=== PATIENT | male | born 1970 | race Caucasian/White ===

== ENCOUNTER 2017-03-26 10:42 | Inpatient (IN) | payer OTHER ==
[2017-03-26 11:46] LABS: Bilirubin Negative (Negative); Blood, Urine Negative (Negative); Glucose, Urine (Dipstick) Negative (Negative); Ketone, Urine Negative (Negative); Nitrite Negative (Negative); Protein, Urine (Dipstick) Negative (Neg-Trace)
--- NOTE | 2017-03-26 11:59 | RAD ---
TWO VIEWS CHEST: HISTORY: Fever. TECHNIQUE: PA and lateral views of the chest are obtained. FINDINGS: The lungs are well aerated. No evidence of active intrathoracic disease is seen. No evidence of ef fusions, pneumonia, or pneumothorax is seen. IMPRESSION: Normal two views chest. POS: [facility]
--- NOTE | 2017-03-26 12:00 | RAD ---
FOUR VIEWS RIGHT KNEE: HISTORY: Total right knee replacement with fever. TECHNIQUE: AP, lateral, and both oblique views of the right knee are obtained. FINDINGS: Images demonstrate a right knee arthroplasty. Femoral and tibial components are in good position. The patient has had previous ACL repair. IMPRESSION: Status post right knee arthroplasty. POS: [facility]
[2017-03-26 12:07] LABS: Lactic Acid - Sepsis 1.2 mmol/L (0.5-2.2)
[2017-03-26 12:11] LABS: ALT (SGPT) 25 U/L (8-55); AST (SGOT) 22 U/L (5-34); Alkaline Phosphatase 87 U/L (40-150); Anion Gap 14 mmol/L (10-20); BUN (Urea Nitrogen) 11 mg/dL (8.9-20.6); Bilirubin, Total 0.7 mg/dL (0.2-1.2); Calc. Creatinine Clearance 0 mL/min (70-130); Carbon Dioxide 24 mmol/L (22-29); Chloride 102 mmol/L (98-107); Estimated GFR-MDRD 81; Globulin 3.4 g/dL (2.4-3.5); Protein, Total 7.2 g/dL (6.0-8.3)
[2017-03-26 12:12] LABS: Troponin I Less than 0.010 ng/mL (< 0.028)
[2017-03-26 12:36] LABS: #Eosinphils 0.2 thou/uL (0.0-0.7); #Lymphocytes 1.2 thou/uL (1.20-3.40); #Monocytes 0.4 thou/uL (0.11-0.59); #Neutrophils 5.4 thou/uL (1.40-6.50); %Basophils 0.3 % (0.0-1.0); %Eosinophils 2.2 % (0.0-10.0); %Lymphocytes 17.2 % (21.0-51.0); %Monocytes 5.1 % (0.0-10.0); Hematocrit 29.9 % (42.0-52.0); Mean Platelet Volume 8.1 fL (7.4-10.4); Red Blood Cell (RBC) Count 3.11 mill/uL (4.70-6.10); White Blood Cell (WBC) Count 7.1 thou/uL (4.8-10.8)
[2017-03-26] MEDS ORDERED: HYDROcodone/Acetaminophen 10/325 mg Tablet ONE (13:57)
--- NOTE | 2017-03-26 14:14 | CT ---
CONTRAST ENHANCED CTA CHEST: Date: 03/26/17 HISTORY: 46-year-old male presents with history of fever. Recent knee replacement. Shortness of breath. TECHNIQUE: Contrast enhanced CTA of chest performed. 2D and 3D reconstructed images performed on an independent 3D workstation. FINDINGS: Images demonstrate no evidence of lung parenchymal lesions. No evidence of pneumonia seen. No eviden ce of mediastinal, hilar, or axillary lymphadenopathy seen. The thoracic aorta is unremarkable. Multiple small third order pulmonary arterial filling defects seen in both upper lobes, right middle lobe, and both lower lobes. This is compatible with numerous small, but bilateral and multilobar pu lmonary emboli. IMPRESSION: Multiple, predominantly third order, multilobar pulmonary emboli. Findings discussed with Dr. Rivera at 1359 hours on 03/26/17. CODE CR. POS: [facility]
[2017-03-26] MEDS ORDERED: ISOVUE-370 76%-LOCM 1 ML ONE (14:40)
[2017-03-26] MEDS ORDERED: Heparin 25,000 units/D5W 500 ML IV SCH (14:45)
--- NOTE | 2017-03-26 14:47 | ULT ---
RIGHT LOWER EXTREMITY VENOUS ULTRASOUND WITH DOPPLER: Date: 03/26/17 HISTORY: Shortness of breath. Patient has documented pulmonary artery emboli. COMPARISON: None. TECHNIQUE: Jarvis scale, color flow, Doppler imaging with spectral waveform analysis performed of the right lower extremity venous system. FINDINGS: There is soft tissue swelling. There is compressibility, presence of flow, and augmentation in the common femoral vein, femoral vei n, and popliteal vein. There is flow in the greater saphenous vein, profunda vein, and posterior tib ial vein. IMPRESSION: 1. No evidence of thrombus in the right lower extremity venous system. 2. Soft tissue swelling. POS: [facility]
[2017-03-26] MEDS ORDERED: Heparin 25,000 units/D5W 500 ML ONE (14:58)
[2017-03-26 15:34] LABS: Prothrombin Time 16.5 SEC (12.0-14.7)
[2017-03-26 15:35] LABS: PTT 52.9 SEC (22.9-36.1)
--- NOTE | 2017-03-26 15:53 | HP ---
PRIMARY CARE PHYSICIAN: Figueroa Orantes M.D. REASON FOR ADMISSION: Bilateral pulmonary embolism. HISTORY OF PRESENT ILLNESS: A 46-year-old male who has history of knee arthritis who was recently a dmitted at [facility] on Wednesday for right total knee replacement which was done on that day a nd subsequently patient stayed in hospital till . He was released yesterday afternoon. Per patient, he was given DVT prophylaxis treatment. After going home last night, he had one episode o f fever of 102 and that was subsided with Tylenol. Subsequently, patient woke up this morning and w hen he was walking, he was getting out of breath. Even after walking few steps, he was requiring de ep breath to catch his breath. His is a nurse who checked his vitals and she noted that his ox ygen saturation was 85%-90% and when she was recording his vitals, she also noticed that one time hi s pulse was 145 and it was remaining in 110 and 120s and that was getting worse with exertion. Hiwot ent denies any dizziness. He denies any syncope. He denies any chest pain. He denies any nausea, vomiting, diaphoresis. He denies any lower extremity swelling. He denies any calf tenderness. Rina aviles was discharged home on Xarelto. The patient also reports that he does not have any bowel movem ent since he was hospitalized at [facility]. He was given offer of a stool softener at [facility], but patient was not taking those there and he still does not have any bowel movement. He never had any DVT or PE in the past. REVIEW OF SYSTEMS: The following complete review of systems was negative, unless otherwise mentione d in the HPI or below: Constitutional: Weight loss or gain, ability to conduct usual activities. Skin: Rash, itching. Eyes: Double vision, pain. ENT/Mouth: Nose bleeding, neck stiffness, pain, tenderness. Cardiovascular: Palpitations, dyspnea on exertion, orthopnea. Respiratory: Shortness of breath, wheezing, cough, hemoptysis, fever or night sweats. Gastrointestinal: Poor appetite, abdominal pain, heartburn, nausea, vomiting, constipation, or diar paul. Genitourinary: Urgency, frequency, dysuria, nocturia. Musculoskeletal: Pain, swelling. Neurologic/Psychiatric: Anxiety, depression. Allergy/Immunologic: Skin rash, bleeding tendency. Please see my HPI for pertinent positive and negative. All other review of systems reviewed and neg ative except as mentioned in the HPI. PAST MEDICAL HISTORY: Obesity. PAST SURGICAL HISTORY: Right knee replacement on Wednesday03/23/2017. The patient also reports that he had multiple right knee surgeries as well as left knee meniscal repair, ventral hernia repair by Dr. Aleman. PAST PSYCHIATRIC HISTORY: Reviewed and negative. SOCIAL HISTORY: Patient is and lives at home with the family. No history of tobacco, alcoh ol or illicit drug abuse. FAMILY HISTORY: Father from cancer and he had blood clot. No strong family history of coronar y artery disease, stroke or cancer. No strong family history of blood clot disorder. EMERGENCY ROOM COURSE: Patient is getting heparin drip. ALLERGIES: No known drug allergies. CURRENT HOME MEDICATIONS: Xarelto 10 mg p.o. daily, tramadol 50 mg q.6 hourly p.r.n., and [place] 10 one tablet q.4 hourly p.r.n. for pain. PHYSICAL EXAMINATION: VITAL SIGNS: On arrival, blood pressure 151/79, pulse 108, respiratory rate 20, temperature 98.5, s aturation 95% on room air, and weight 115.6 kilograms. GENERAL: Patient is currently alert, awake, no obvious acute distress. HEAD: Normocephalic, atraumatic. EYES: Pupils round, reactive to light. Extraocular muscles intact. ENT: Oropharynx within normal limits. Moist mucous membranes. No oral lesions. No pharyngeal krys thema, no exudate. NECK: Supple. Range of motion is normal. No meningeal signs of irritation. LUNGS: Clear to auscultation without any rhonchi or rales. CARDIAC: S1 and S2 regular, tachycardia, no murmur, no gallop, no rub. ABDOMEN: Obesity present. Bowel sounds present. Nontender and nondistended. No organomegaly, no mass, no suprapubic tenderness. BACK: Examination unremarkable. No CVA tenderness. EXTREMITIES: Upper extremity passive movements of all joints are normal. Lower extremity, right kn ee surgical site is clean and healthy. Mild edema noted around surgical site without any fluctuance or discharge. No calf tenderness. Distal pulsation intact. SKIN: No skin rash. HEMATOLOGICAL SYSTEM: No lymphadenopathy. PSYCHIATRIC: Normal affect. NEUROLOGIC: Nonfocal examination. IMAGING AND SIGNIFICANT LABORATORY DATA: 1. Ultrasound right lower extremity negative for deep vein thrombosis only showing soft tissue swel ling. CT angiography which was done for high D-dimer, which showed multiple third order multilobar pulmonary emboli. X-ray knee showed status post right total knee arthroplasty. Chest x-ray based o n my review, no acute cardiopulmonary process. 2. CBC: WBC 7.1, hemoglobin 9.9, MCV 96.1, and platelet 229. D-dimer 3.04. 3. BMP: Sodium 136, potassium 4.2, chloride 102, carbon dioxide 24, BUN 11, creatinine 1.0, glucos e 99, calcium 9.0, lactic acid 1.2. 4. LFT: AST 22, ALT 25, alkaline phosphatase 87, albumin 3.8. CK-MB 0.9, troponin I less than 0.0 10. Urinalysis normal. ASSESSMENT AND PLAN/IMPRESSION: 1. Bilateral pulmonary embolism. This patient had recently knee replacement done on Wednesday. Desp ite patient was given thrombosis prophylaxis after surgery, patient developed pulmonary embolism. R ight lower extremity is negative for any deep venous thrombosis. We will also obtain ultrasound on left lower extremity to rule out any deep venous thrombosis there. The patient will be treated with heparin drip. We will monitor PTT and titrate heparin drip as per protocol treatment. This is not Xarelto failure, but this patient will need therapeutic dose of Xarelto on discharge. Patient will need at least 6 months of therapy given correlation with knee surgery and pulmonary embolism. We w ill also send hypercoagulable profile tomorrow morning. We will monitor on telemetry floor. 2. Morbid obesity. Dietary education given. Weight loss education given. Healthy lifestyle measu res discussed with the patient. 3. Recent status post right total knee replacement. While in hospital, we will continue PT, OT. W e will notify Dr. Narvaez while in hospital. 4. Macrocytic anemia. We will continue ferrous sulfate 325 mg p.o. daily, folic acid 1 mg p.o. zachary ly. 5. Deep venous thrombosis prophylaxis. Patient is already on full dose of therapeutic heparin drip . 6. Gastrointestinal prophylaxis, Protonix 40 mg p.o. daily. CODE STATUS: The patient is FULL CODE. The patient's is surrogate decision maker. Disposition plan based on clinical course. We are expecting patient's stay in hospital more than 2 midnights. Plan of care discussed with the patient and at bedside in the emergency room in critical access hospital.
[2017-03-26] MEDS ORDERED: Zolpidem Tartrate 5 MG TAB PO PRN (16:55)
[2017-03-26] MEDS ORDERED: Senokot 8.6 MG TAB PO PRN (16:55)
[2017-03-26] MEDS ORDERED: Ondansetron ODT 4 MG TAB SL PRN (16:55)
[2017-03-26] MEDS ORDERED: HYDROcodone/Acetaminophen 5/325 mg Tablet PO PRN ×2 (16:55)
[2017-03-26] MEDS ORDERED: Ondansetron HCl/PF 4 MG/2 ML Vial IVP PRN ×2 (16:55)
[2017-03-26] MEDS ORDERED: Loperamide HCl 2 MG CAP PO PRN (16:55)
[2017-03-26] MEDS ORDERED: Fleet Enema 133 ML BOT PR PRN (16:55)
[2017-03-26] MEDS ORDERED: Bisacodyl 10 MG SUPP PR PRN (16:55)
[2017-03-26] MEDS ORDERED: Mag-Al 1200 mg/1200 mg/30 ML UDCUP PO PRN (16:55)
[2017-03-26] MEDS ORDERED: Acetaminophen 325 MG TAB PO PRN ×2 (16:55)
[2017-03-26] MEDS ORDERED: Ondansetron ODT 4 MG TAB PO PRN (16:55)
[2017-03-26] MEDS ORDERED: Heparin 10,000 UNITS/ 10 ML VIAL SLOW IVP SCH (16:55)
[2017-03-26] MEDS ORDERED: Heparin 25,000 units/D5W 500 ML IVPB SCH ×3 (16:55→22:15)
[2017-03-26 17:11] VITALS: BMI 37.4
--- NOTE | 2017-03-26 18:46 | ULT ---
LEFT LOWER EXTREMITY VENOUS DUPLEX ULTRASOUND INCLUDING COLOR AND SPECTRAL DOPPLER IMAGIN03/26/17 HISTORY: 46-year-old male with known pulmonary embolus. Exam performed from groin to ankle including visualized greater saphenous, common femoral, superfici al femoral, profunda femoral, popliteal, trifurcation, and posterior tibial vein regions. Phasic randell w with normal compressibility and normal augmentation at all levels. No intraluminal thrombus. IMPRESSION: No evidence for deep venous thrombosis. POS: [facility]
[2017-03-26] MEDS: Docusate 100 MG CAP PO SCH (20:59)
[2017-03-26] MEDS ORDERED: FLU VACC QS2017-18 36 mo. & older 0.5 ML SYRINGE IM ONE (21:00)
[2017-03-27] MEDS: HYDROcodone/Acetaminophen 10/325 mg Tablet PO PRN ×4 (03:20→21:55)
[2017-03-27 05:59] LABS: Hematocrit 27.8 % (42.0-52.0)
--- NOTE | 2017-03-27 07:02 | PDOC.PN ---
- Subjective Encounter Start Date: 03/27/17 Encounter Start Time: 09:26 -: old records requested/rev pt is doing well, no tachycardia, no chest pain, on room air, denies dizziness or dyspnea - Objective Resuscitation Status: Resuscitation Status FULL:Full Resuscitation MAR Reviewed: Yes Vital Signs & Weight: Vital Signs (12 hours) Temp Pulse Resp BP Pulse Ox 03/27/17 03:11 98.9 F 99 18 120/74 95 03/26/17 20:00 99.6 F 103 H 16 118/69 98 03/26/17 19:48 99 03/26/17 19:20 99.6 F 103 H 16 93 L Weight Weight 263 lb 14.4 oz I&O: 03/26/17 03/27/17 03/28/17 06:59 06:59 06:59 Intake Total 2301 Output Total 1025 Balance 1276 Result Diagrams: 03/27/17 05:48 03/27/17 05:48 Radiology Reviewed by me: Yes (US negative for DVT) EKG Reviewed by me: Yes (NSR) Phys Exam - Physical Examination Constitutional: NAD HEENT: PERRLA, moist MMs, sclera anicteric Neck: no JVD, supple Respiratory: no wheezing, no rales, no rhonchi Cardiovascular: RRR, no significant murmur, no rub Gastrointestinal: soft, non-tender, no distention, positive bowel sounds Musculoskeletal: no edema, pulses present Neurological: non-focal, normal sensation, moves all 4 limbs Lymphatic: no nodes Psychiatric: normal affect, A&O x 3 Skin: no rash, normal turgor Dx/Plan (1) Pulmonary embolism Code(s): I26.99 - OTHER PULMONARY EMBOLISM WITHOUT ACUTE COR PULMONALE Status : Acute Qualifiers: Chronicity: acute (2) Status post total right knee replacement Code(s): Z96.651 - PRESENCE OF RIGHT ARTIFICIAL KNEE JOINT Status: Acute (3) Anemia Code(s): D64.9 - ANEMIA, UNSPECIFIED Status: Chronic (4) Obesity (BMI 30-39.9) Code(s): E66.9 - OBESITY, UNSPECIFIED Status: Chronic - Plan cont current plan of care, plan discussed w/ family * continue current heparin drip today, will not start another bag again * will start therapeutic dose of xarelto * overall medically stable and improving * medication reviewed as below * symptomatic treatment * continue PT/OT from tomorrow Review of Systems - Review of Systems Constitutional: negative: Fever, Chills, Sweats, Weakness, Malaise, Other Eyes: negative: Pain, Vision Change, Conjunctivae Inflammation, Eyelid Inflammation, Redness, Other ENT: negative: Ear Pain, Ear Discharge, Nose Pain, Nose Discharge, Nose Congestion, Mouth Pain, Mouth Swelling, Throat Pain, Throat Swelling, Other Respiratory: negative: Cough, Dry, Shortness of Breath, Hemoptysis, SOB with Excertion, Pleuritic Pain, Sputum, Wheezing Cardiovascular: negative: Chest Pain, Palpitations, Orthopnea, Paroxysmal Noc. Dyspnea, Edema, Light Headedness, Other Gastrointestinal: negative: Nausea, Vomiting, Abdominal Pain, Diarrhea, Constipation, Melena, Hematochezia, Other Genitourinary: negative: Dysuria, Frequency, Incontinence, Hematuria, Retention , Other Musculoskeletal: negative: Neck Pain, Shoulder Pain, Arm Pain, Back Pain, Hand Pain, Leg Pain, Foot Pain, Other Skin: negative: Rash, Lesions, Tavo, Bruising, Other - Medications/Allergies Allergies/Adverse Reactions: Allergies Allergy/AdvReac Type Severity Reaction Status Date / Time No Known Allergies Allergy Verified 08/14/16 08:49 Medications: Current Medications Acetaminophen (Tylenol) 650 mg PO Q4H PRN PRN Reason: Headache/Fever or Pain Hydrocodone Bitart/Acetaminophen ([place] 10/325) 1 tab PO Q4H PRN PRN Reason: Moderate Pain (4-6) Last Admin: 03/27/17 03:20 Dose: 1 tab Al Hydroxide/Mg Hydroxide (Maalox) 30 ml PO Q6H PRN PRN Reason: Heartburn or Indigestion Bisacodyl (Dulcolax) 10 mg AK Q24H PRN PRN Reason: Constipation Docusate Sodium (Colace) 100 mg PO BID [facility] Last Admin: 03/26/17 20:59 Dose: 100 mg Ferrous Gluconate (Fergon) 324 mg PO QA[facility] Folic Acid (Folvite) 1 mg PO DAILY [facility] Heparin Sodium (Porcine) (Heparin 1,000 Units/Ml (10 Ml)) 0 units SLOW IVP ASDIR ANIKA PRN Reason: Protocol Heparin Sodium/Dextrose (Heparin 25,000 Units/D5w 500 Ml) 500 mls @ 0 mls/hr IVPB INF ANIKA; Per Protocol PRN Reason: Protocol Last Admin: 03/27/17 03:57 Dose: 500 mls Loperamide HCl (Imodium) 2 mg PO PRN PRN PRN Reason: Diarrhea/Loose Stools Magnesium Hydroxide (Milk Of Magnesium) 30 ml PO DAILYPRN PRN PRN Reason: Constipation Ondansetron HCl (Zofran Odt) 4 mg PO Q6H PRN PRN Reason: Nausea/Vomiting Ondansetron HCl (Zofran) 4 mg IVP Q6H PRN PRN Reason: Nausea/Vomiting Pantoprazole Sodium (Protonix) 40 mg PO DAILY ANIKA Senna (Senokot) 2 tab PO HSPRN PRN PRN Reason: Constipation Sodium Biphosphate/Sodium Phosphate (Fleet Enema) 133 ml AK ONE PRN PRN Reason: Constipation Stop: 03/29/17 16:56 Zolpidem Tartrate (Ambien) 5 mg PO HSPRN PRN PRN Reason: Insomnia
[2017-03-27] MEDS: traMADol HCl 50 MG TAB PO PRN ×2 (08:46→15:20)
[2017-03-27] MEDS: Ferrous Gluconate 324 MG TAB PO SCH (08:49)
[2017-03-27] MEDS: Docusate 100 MG CAP PO SCH ×2 (08:49→22:24)
[2017-03-27] MEDS: Folic Acid 1 MG TAB PO SCH (08:49)
[2017-03-27] MEDS: Milk Of Magnesia 30 ML UDCUP PO PRN (10:15)
--- NOTE | 2017-03-27 17:22 | CON ---
DATE OF CONSULTATION: 03/27/2017 HISTORY OF PRESENT ILLNESS: Mr. Srinivasan is a 46-year-old male. He had right knee surgery recent ly. He was placed on prophylactic dose Eliquis from what I can tell and then started having episode s of shortness of breath with hypoxemia and tachycardia at home. Subsequently, he presented to the emergency department and was diagnosed with thromboembolic disease. He has no previous similar history. He has multiple knee surgeries in the past as well as herniorrhaphy. He is otherwise healthy. SOCIAL HISTORY: He is a nonsmoker, nondrinker. FAMILY HISTORY: He has a family history of cancer and blood clots. REVIEW OF SYSTEMS: Otherwise negative. ALLERGIES: He has no reported allergies. HOME MEDICATION LIST: He is on 10 mg a day of Xarelto, but he could not tell me the dose. He is on [place] and tramadol for pain. PHYSICAL EXAMINATION: VITAL SIGNS: He is afebrile, heart rate is 98, respiratory rate 16, oximetry is 96, blood pressure is 121/60. HEAD AND NECK: Unremarkable. LUNGS: Clear. HEART: Regular rhythm. S1 and S2 are normal. ABDOMEN: Soft and nontender. EXTREMITIES: Without clubbing, cyanosis. His right lower extremity is larger than his left. IMAGING: His Doppler of his right lower extremity was negative. CT angiogram showed bilateral embo lic defects. IMPRESSION: Thromboembolic disease related to knee replacement. PLAN: Lovenox instead of IV heparin. We will be happy to follow with the other physicians caring f or him. They do investigate the dosing of his Xarelto at home.
[2017-03-27] MEDS: Enoxaparin Sodium 100 MG/ML SYRINGE SC SCH (22:04)
[2017-03-28] MEDS: traMADol HCl 50 MG TAB PO PRN ×3 (09:02→21:31)
[2017-03-28] MEDS: Docusate 100 MG CAP PO SCH ×2 (09:03→21:33)
[2017-03-28] MEDS: Folic Acid 1 MG TAB PO SCH (09:04)
[2017-03-28] MEDS: Ferrous Gluconate 324 MG TAB PO SCH (09:04)
[2017-03-28] MEDS: Enoxaparin Sodium 100 MG/ML SYRINGE SC SCH ×2 (09:04→21:30)
[2017-03-28] MEDS: HYDROcodone/Acetaminophen 10/325 mg Tablet PO PRN ×2 (10:50→23:03)
--- NOTE | 2017-03-28 11:35 | PDOC.PN ---
- Subjective Encounter Start Date: 03/28/17 Encounter Start Time: 10:30 Patient seen and examined. No new complaints. No overnight events - Objective Resuscitation Status: Resuscitation Status FULL:Full Resuscitation MAR Reviewed: Yes Vital Signs & Weight: Vital Signs (12 hours) Temp Pulse Resp BP Pulse Ox 03/28/17 11:01 98.9 F 99 17 130/75 97 03/28/17 08:55 98.9 F 101 H 18 122/68 95 03/28/17 04:00 98.0 F 89 18 117/73 98 Weight Weight 261 lb I&O: 03/27/17 03/28/17 03/29/17 06:59 06:59 06:59 Intake Total 2301 1390 Output Total 1025 200 Balance 1276 1190 Result Diagrams: 03/27/17 05:48 03/27/17 05:48 EKG Reviewed by me: Yes (nsr) Phys Exam - Physical Examination Constitutional: NAD HEENT: PERRLA, moist MMs, sclera anicteric Neck: no JVD, supple Respiratory: no wheezing, no rales, no rhonchi Cardiovascular: RRR, no significant murmur, no rub Gastrointestinal: soft, non-tender, no distention, positive bowel sounds Musculoskeletal: no edema, pulses present Neurological: non-focal, normal sensation, moves all 4 limbs Psychiatric: normal affect, A&O x 3 Skin: no rash, normal turgor Dx/Plan (1) Pulmonary embolism Code(s): I26.99 - OTHER PULMONARY EMBOLISM WITHOUT ACUTE COR PULMONALE Status : Acute Qualifiers: Chronicity: acute (2) Status post total right knee replacement Code(s): Z96.651 - PRESENCE OF RIGHT ARTIFICIAL KNEE JOINT Status: Acute (3) Anemia Code(s): D64.9 - ANEMIA, UNSPECIFIED Status: Chronic (4) Obesity (BMI 30-39.9) Code(s): E66.9 - OBESITY, UNSPECIFIED Status: Chronic - Plan cont current plan of care * continue lovenox * discussed with pt about options of warfarin/xarelto/elliquis on discharge * risk benefit of all option discussed * medication reviewed as below * symptomatic treatment. Review of Systems - Review of Systems ENT: negative: Ear Pain, Ear Discharge, Nose Pain, Nose Discharge, Nose Congestion, Mouth Pain, Mouth Swelling, Throat Pain, Throat Swelling, Other Respiratory: negative: Cough, Dry, Shortness of Breath, Hemoptysis, SOB with Excertion, Pleuritic Pain, Sputum, Wheezing Cardiovascular: negative: Chest Pain, Palpitations, Orthopnea, Paroxysmal Noc. Dyspnea, Edema, Light Headedness, Other Gastrointestinal: negative: Nausea, Vomiting, Abdominal Pain, Diarrhea, Constipation, Melena, Hematochezia, Other Genitourinary: negative: Dysuria, Frequency, Incontinence, Hematuria, Retention , Other Musculoskeletal: negative: Neck Pain, Shoulder Pain, Arm Pain, Back Pain, Hand Pain, Leg Pain, Foot Pain, Other Skin: negative: Rash, Lesions, Tavo, Bruising, Other - Medications/Allergies Allergies/Adverse Reactions: Allergies Allergy/AdvReac Type Severity Reaction Status Date / Time No Known Allergies Allergy Verified 08/14/16 08:49 Medications: Current Medications Acetaminophen (Tylenol) 650 mg PO Q4H PRN PRN Reason: Headache/Fever or Pain Hydrocodone Bitart/Acetaminophen ([place] 10/325) 1 tab PO Q4H PRN PRN Reason: Moderate Pain (4-6) Last Admin: 03/28/17 10:50 Dose: 1 tab Hydrocodone Bitart/Acetaminophen ([place] 10/325) 2 tab PO Q4H PRN PRN Reason: Severe Pain (7-10) Last Admin: 03/27/17 21:55 Dose: 2 tab Al Hydroxide/Mg Hydroxide (Maalox) 30 ml PO Q6H PRN PRN Reason: Heartburn or Indigestion Bisacodyl (Dulcolax) 10 mg [place] Q24H PRN PRN Reason: Constipation Docusate Sodium (Colace) 100 mg PO BID [facility] Last Admin: 03/28/17 09:03 Dose: 100 mg Enoxaparin Sodium (Lovenox) 100 mg SC 0900,2100 [facility] Last Admin: 03/28/17 09:04 Dose: 100 mg Ferrous Gluconate (Fergon) 324 mg PO [facility] Last Admin: 03/28/17 09:04 Dose: 324 mg Folic Acid (Folvite) 1 mg PO DAILY [facility] Last Admin: 03/28/17 09:04 Dose: 1 mg Loperamide HCl (Imodium) 2 mg PO PRN PRN PRN Reason: Diarrhea/Loose Stools Magnesium Hydroxide (Milk Of Magnesium) 30 ml PO DAILYPRN PRN PRN Reason: Constipation Last Admin: 03/27/17 10:15 Dose: 30 ml Ondansetron HCl (Zofran Odt) 4 mg PO Q6H PRN PRN Reason: Nausea/Vomiting Ondansetron HCl (Zofran) 4 mg IVP Q6H PRN PRN Reason: Nausea/Vomiting Pantoprazole Sodium (Protonix) 40 mg PO DAILY [facility] Last Admin: 03/28/17 09:04 Dose: 40 mg Senna (Senokot) 2 tab PO HSPRN PRN PRN Reason: Constipation Sodium Biphosphate/Sodium Phosphate (Fleet Enema) 133 ml [place] ONE PRN PRN Reason: Constipation Stop: 03/29/17 16:56 Tramadol HCl (Ultram) 50 mg PO Q6H PRN PRN Reason: Pain Last Admin: 03/28/17 09:02 Dose: 50 mg Zolpidem Tartrate (Ambien) 5 mg PO HSPRN PRN PRN Reason: Insomnia Last Admin: 03/27/17 22:07 Dose: 5 mg
--- NOTE | 2017-03-28 13:15 | PRG ---
DATE OF SERVICE: 03/28/2017 SUBJECTIVE: Mr. Srinivasan says he is feeling better. He is anxious to go home. OBJECTIVE: VITAL SIGNS: He is afebrile, heart rate 99, respiratory rate 17, oximetry 97, blood pressure 130/75 . LUNGS: Clear. CARDIOVASCULAR: Regular rhythm. ABDOMEN: Soft. IMPRESSION: Thromboembolic disease. PLAN: Continue anticoagulation with Lovenox. We will probably switch him to p.o. anticoagulant arabella orrow. He says he was on 10 mg Xarelto a day prior to admission. This may have affected choice for anticoagulants after discharge. It is unusual that he would have thromboembolic disease on 10 of Xarelto but not impossible.
[2017-03-29] MEDS: HYDROcodone/Acetaminophen 10/325 mg Tablet PO PRN ×2 (04:46→08:48)
[2017-03-29 05:14] LABS: Hematocrit 30.7 % (42.0-52.0)
[2017-03-29 05:15] LABS: Prothrombin Time 13.3 SEC (12.0-14.7)
[2017-03-29] MEDS: Milk Of Magnesia 30 ML UDCUP PO PRN (08:46)
[2017-03-29] MEDS: Ferrous Gluconate 324 MG TAB PO SCH (08:46)
[2017-03-29] MEDS: Docusate 100 MG CAP PO SCH (08:47)
[2017-03-29] MEDS: Folic Acid 1 MG TAB PO SCH (08:47)
[2017-03-29] MEDS: Enoxaparin Sodium 100 MG/ML SYRINGE SC SCH (08:48)
[2017-03-29 08:56] VITALS: BP 126/82; TEMP 97.7
[2017-03-29 12:32] LABS: Protein C Activity 113 % (78-152)
--- NOTE | 2017-03-29 13:13 | PRG ---
DATE OF SERVICE: 03/29/2017 Mr. Srinivasan is doing well. He has no complaints. He says he feels like he could go home. PHYSICAL EXAMINATION: VITAL SIGNS: His vital signs remain stable. He is afebrile, heart rate 80. Sats are 94 to 98 on r oom air. Blood pressure 126/82. LUNGS: Clear. IMPRESSION: Thromboembolic disease after a knee replacement. PLAN: Xarelto 15 twice a day for 3 weeks, then 20 mg once a day. Follow up with his orthopedic julio anirudh. He will follow up with me in 2 months.
--- NOTE | 2017-03-29 13:17 | DIS ---
DATE OF ADMISSION: 03/26/2017 DATE OF DISCHARGE: 03/29/2017 PRIMARY CARE PHYSICIAN: Figueroa Orantes M.D. DISCHARGE DIAGNOSIS: Bilateral pulmonary embolism. SECONDARY DISCHARGE DIAGNOSES: Obesity with body mass index 37, status post recent right total knee replacement. RADIOLOGICAL INVESTIGATION: CT angiogram showed bilateral pulmonary embolism. Ultrasound was negat ana for any DVT. Knee x-ray was normal. Chest x-ray was normal. SIGNIFICANT LABORATORY DATA: Hemoglobin 10.2, INR 1.0, creatinine 1.0. LFTs normal. Electrolytes normal. Urinalysis normal. Anticardiolipin antibody and prothrombin [id number] mutation pending. DISCHARGE MEDICATIONS: Patient is advised to take Xarelto 15 mg p.o. twice daily for 18 days and faria bsequently patient will change to Xarelto 20 mg p.o. daily to finish complete course of therapy. CONTRAINDICATIONS: None. CODE STATUS: FULL CODE. INPATIENT FIBREGLASS LAY UP WORKER: Dr. Castro. TEST RESULTS PENDING ON DISCHARGE: None. ALLERGIES: No known drug allergy. DISCHARGE PLAN: Post hospital, the patient will follow up with primary care physician. HOSPITAL COURSE: A 46-year-old male who had recently right total knee replacement at [facility]. He was given Xarelto for DVT prophylaxis. Despite that, patient developed pulmonary embolism. He presented to the ER with dyspnea. He was hypoxic and tachycardic in the emergency room. His CT angio was positive for bilateral pulmonary embolism. He was admitted to telemetry floor. He was t reated with heparin drip and subsequently we consulted Dr. Castro. He recommended to change to Loven ox. Today we changed to p.o. Xarelto therapy. Overall, this patient is medically stable for discharge. The patient is normal. He is ambulatory. During this admission, his ultrasound was negative for any DVT. The patient is seen and examined at bedside today. PHYSICAL EXAMINATION: VITAL SIGNS: Currently, temperature 97.7, pulse 92, respiratory rate 18, saturation 98%, blood pres sure 126/82, and weight 259 pounds. GENERAL: The patient is currently alert, awake, no acute distress. HEAD: Normocephalic, atraumatic. LUNGS: Clear. CARDIAC: S1, S2 regular, without any murmurs. ABDOMEN: Soft and benign. EXTREMITIES: No edema. NEUROLOGIC: Nonfocal examination. The patient is advised to follow up with Dr. Figueroa Orantes, Dr. Castro, and Dr. Narvaez who did knee surgery.
--- NOTE | 2017-03-30 17:45 | PQF ---
TOD DAO SALIM NOORJIBHAI MD [id number] [facility]266 [id number] CLINICAL DOCUMENTATION CLARIFICATION FORM: POST DISCHARGE Please clarify if underlying cause of Pulmonary Embolism can be further specified. H&P: "Bilateral pulmonary embolism. This patient recently had knee replacement done on Wednesday. Despite patient given thrombosis prophylaxis after surgery, patient developed pulmonary embolism." CONSULT PULMED: "Thromboembolic disease related to knee replacement." DC SUMMARY: "Bilateral Pulmonary Embolism." ; "Status post recent right total knee replacement". Please exercise your independent, professional judgment in responding to the clarification form. Clinical indicators are provided on the bottom of this form for your review Please check appropriate box(s): [ x ] (Condition) related to current/recent surgery [ ] (Condition) not related to current/recent surgery [ ] Other diagnosis [ ] Unable to determine In addition, please specify: Present on Admission (POA): [ x] Yes [ ] No [ ] Unable to determine CLINICAL INDICATORS - SIGNS / SYMPTOMS / LABS CT / x-ray results Altered vitals Pain/ drainage from site Supporting labs Blood cultures Dehiscence Bleeding Infection RISK FACTORS Recent surgery Poor healing factors (advanced age / debility / obesity / chronic conditions) Recent use of antibiotics TREATMENT: Antibiotics IV Fluids Surgical procedure/ Evaluation (This form is maintained as a part of the permanent medical record) 2014 [employer] All Rights Reserved [email or web address] [phone] GABRIELLA
[2017-04-01 19:12] LABS: Activated Protein C Resistance 3.3 ratio (.)
== END 2017-03-29 14:22 | disposition home or self-care (01) | DRG 559 ==
LOC: ERS 10:42 → 2NO 14:30
PROVIDERS: ADMIT Internal Medicine; ATTEND Internal Medicine
DX: T84.81XA Embolism due to internal orthopedic prosthetic devices, implants and grafts, initial encounter (principal); I26.99 Other pulmonary embolism without acute cor pulmonale; Z47.1 Aftercare following joint replacement surgery; Z96.651 Presence of right artificial knee joint; E66.01 Morbid (severe) obesity due to excess calories; Z68.37 Body mass index [BMI] 37.0-37.9, adult; Z23 Encounter for immunization; D53.9 Nutritional anemia, unspecified; R09.02 Hypoxemia
CPT/HCPCS: 36415; 71020; 71275; 80053; 81003; 81240; 82553; 82565; 83090; 83605; 84484; 85014; 85018; 85025; 85240; 85300; 85303; 85305; 85307; 85379; 85598; 85610; 85730; 90471; 90682; 96361; 96365; G0008; G8978-GP-CJ; G8979-GP-CI; J1644; J1650; Q2036

== ENCOUNTER 2017-05-15 15:55 | Emergency (ER) | payer OTHER ==
[2017-05-15 16:32] LABS: Hematocrit 39.5 % (42.0-52.0); Mean Platelet Volume 7.6 fL (7.4-10.4); Red Blood Cell (RBC) Count 4.02 mill/uL (4.70-6.10); White Blood Cell (WBC) Count 10.3 thou/uL (4.8-10.8)
[2017-05-15 16:52] LABS: Lactic Acid - Sepsis 2.2 mmol/L (0.5-2.2)
[2017-05-15 16:54] LABS: Band 26 % (5-11); Neutrophil 60 % (42-75); Polychromasia SLIGHT = 2-3 cells (100X) (0-2/hpf)
[2017-05-15 16:56] LABS: ALT (SGPT) 22 U/L (8-55); AST (SGOT) 17 U/L (5-34); Alkaline Phosphatase 107 U/L (40-150); Anion Gap 15 mmol/L (10-20); BUN (Urea Nitrogen) 14 mg/dL (8.9-20.6); Calc. Creatinine Clearance 0 mL/min (70-130); Carbon Dioxide 24 mmol/L (22-29); Chloride 100 mmol/L (98-107); Estimated GFR-MDRD 67
[2017-05-15 17:28] LABS: Bilirubin Small (Negative); Blood, Urine Small (Negative); Glucose, Urine (Dipstick) Negative (Negative); Ketone, Urine Trace mg/dL (Negative); Nitrite Negative (Negative); Protein, Urine (Dipstick) 100 mg/dL (Neg-Trace)
[2017-05-15 17:31] LABS: Bacteria/HPF None Seen HPF (None Seen); Squamous Epithelial 0-3 HPF (0-3)
[2017-05-15 17:45] LABS: Hyaline Casts/LPF 0-3 HYALINE CAST LPF (0-3 Hyaline); Renal Epithelial None Seen HPF (0-3); Transitional Epithelial NONE SEEN HPF (0-3)
[2017-05-15] MEDS ORDERED: Lidocaine 1% PF 5 ML VIAL ONE (18:30)
[2017-05-15] MEDS ORDERED: Acetaminophen 500 MG TAB ONE (19:41)
--- NOTE | 2017-05-15 20:21 | RAD ---
RADIOGRAPH CHEST 1 VIEW: 05/15/17 HISTORY: 46-year-old male with dyspnea. FINDINGS: There are no air space densities, pulmonary edema, pneumothorax, or cardiomegaly. The lateral costop hrenic angles are sharp. IMPRESSION: No acute cardiopulmonary findings. jenna [] POS: ANGEL
--- NOTE | 2017-05-15 20:25 | RAD ---
RADIOGRAPH RIGHT KNEE 4 VIEWS: Date: 05/15/17 Time: 3:35 p.m. HISTORY: 46-year-old male with pain and swelling of the right knee. FINDINGS: There are metallic prostheses covering the articular surfaces of the distal femur and tibial plateau. There are ACL repair screws at the distal femur and tibial proximal metaphysis. There is edema in Ho ffa's fat pad. There is a moderately dense opacification of the suprapatellar component of the joint, consistent with a large joint effusion. There is diffuse soft tissue edema and swelling of the anter ior aspect of the knee. No radiographic evidence of loosening of hardware. No acute fracture or dislo cation. IMPRESSION: 1. Status post total right knee replacement arthroplasty. 2. Status post anterior cruciate ligament repair. 3. Prominent soft tissue edema and joint effusion. Given the history of pain and swelling, this is suspicious for septic joint. POS: ANGEL
== END 2017-05-15 19:52 | disposition home or self-care (01) ==
LOC: ERS 15:55
DX: M13.161 Monoarthritis, not elsewhere classified, right knee (principal); F17.220 Nicotine dependence, chewing tobacco, uncomplicated
CPT/HCPCS: 36415; 71010; 80053; 81003; 81015; 82945; 83605; 84550; 85025; 87040; 87070; 87077; 87149; 87205; 89060; J0696; J2001

== ENCOUNTER 2017-05-16 11:42 | Inpatient (IN) | payer OTHER ==
[2017-05-16 13:15] LABS: ALT (SGPT) 18 U/L (8-55); AST (SGOT) 27 U/L (5-34); Alkaline Phosphatase 106 U/L (40-150); Anion Gap 17 mmol/L (10-20); BUN (Urea Nitrogen) 17 mg/dL (8.9-20.6); Bilirubin, Total 0.8 mg/dL (0.2-1.2); Calc. Creatinine Clearance 0 mL/min (70-130); Calcium 8.6 mg/dL (7.8-10.44); Carbon Dioxide 22 mmol/L (22-29); Chloride 100 mmol/L (98-107); Estimated GFR-MDRD 75; Globulin 3.5 g/dL (2.4-3.5)
[2017-05-16 13:28] LABS: Band 18 % (5-11); Hematocrit 37.8 % (42.0-52.0); Mean Platelet Volume 7.6 fL (7.4-10.4); Metamyelocyte 1 % (0-0); Neutrophil 60 % (42-75); Polychromasia SLIGHT = 2-3 cells (100X) (0-2/hpf); Reactive Lymphocytes 4 % (0-10); Red Blood Cell (RBC) Count 3.86 mill/uL (4.70-6.10); Toxic Granulation SLIGHT; Vacuoles SLIGHT; White Blood Cell (WBC) Count 8.7 thou/uL (4.8-10.8)
[2017-05-16 14:12] LABS: Lactic Acid - Sepsis 0.9 mmol/L (0.5-2.2)
[2017-05-16] MEDS ORDERED: Oseltamivir 75 MG CAP PO ONE (14:30)
[2017-05-16] MEDS ORDERED: cefTRIAXone\\ROCEPHIN 2 GM in Sodium Chloride 0.9% 100 ML IVPB ONE (14:30)
--- NOTE | 2017-05-16 16:32 | PDOC.EVN ---
Event Note - Event Note Event Note: Patient seen and examined. Note dictated. Hold Ya today per Dr Narvaez
--- NOTE | 2017-05-16 17:11 | HP ---
DATE OF ADMISSION: 05/16/2017 PRIMARY CARE PHYSICIAN: Dr. Orantes. PRIMARY ORTHOPEDIC: Dr. Narvaez. PRIMARY GOVERNOR ASSEMBLER: Dr. Castro. CHIEF COMPLAINT: Right knee pain. Patient had positive blood cultures. HISTORY OF PRESENT ILLNESS: Patient is a 46-year-old male with a right knee replacement 7 weeks ago, who presented to the emergency room yesterday with right knee pain along with fever. He underwent a rthrocentesis with blood cultures. His blood cultures and synovial fluid cultures were positive for group B Streptococcus. He received a call from the emergency room to get admitted for IV antibiotics . Over the last four days, the patient has swelling of the right knee that is progressively getting wor se. He also had intermittent fever with chills and diaphoresis. His maximum temperature was around 104. This pain was moderate in intensity, worse with movement. He also noticed warmth and some red discoloration of his right knee. He is also recovering from an upper respiratory tract infection ove r the last 1 week or so. He denies any dysuria, hematuria or urgency; however, his urine was dark pe r patient report. He felt generally weak and fatigued. PAST MEDICAL HISTORY: 1. Elective right knee replacement on 03/23/2017 at [facility]. The patient was admitted at [facility] facility from 03/26/2017 to 03/29/2017 with bilateral pulmonary embolism that was treated with Xa relto. 2. Obesity with a BMI of 37. PAST SURGICAL HISTORY: As discussed above. He also had a ventral hernia repair by Dr. Love mcgrath er this year as well as left knee meniscal repair. ALLERGIES: No known drug allergies. CURRENT HOME MEDICATIONS: Xarelto 20 mg daily with [place] as needed. FAMILY HISTORY: Father from malignancy that was complicated with blood clots. SOCIAL HISTORY: Currently lives at home with his family. No smoking, alcohol, or drug use. REVIEW OF SYSTEMS: The following complete review of systems was negative, unless otherwise mentioned in the HPI or below: Constitutional: Weight loss or gain, ability to conduct usual activities. Skin: Rash, itching. Eyes: Double vision, pain. ENT/Mouth: Nose bleeding, neck stiffness, pain, tenderness. Cardiovascular: Palpitations, dyspnea on exertion, orthopnea. Respiratory: Shortness of breath, wheezing, cough, hemoptysis, fever or night sweats. Gastrointestinal: Poor appetite, abdominal pain, heartburn, nausea, vomiting, constipation, or diarrh ea. Genitourinary: Urgency, frequency, dysuria, nocturia. Musculoskeletal: Pain, swelling. Neurologic/Psychiatric: Anxiety, depression. Allergy/Immunologic: Skin rash, bleeding tendency. PHYSICAL EXAMINATION: VITAL SIGNS: Showed temperature 99.7, respirations 20, pulse rate of 103, blood pressure 134/82 with O2 saturation 94% on room air. GENERAL: A 46-year-old male in mild distress due to right knee pain, feels generally weak. HEENT: Head is atraumatic, normocephalic. Sclerae are anicteric. Moist mucous membranes. No oral lesion appreciated. NECK: Supple, no JVD, no carotid bruit. LUNGS: Clear to auscultation bilaterally, no wheezing, rales or rhonchi. HEART: S1 and S2 present. Regular rate and rhythm, tachycardic, no heaves or pulsation. ABDOMEN: Soft, bowel sounds present, no rebound, guarding, no costovertebral angle tenderness. EXTREMITIES: There is significant swelling of the right knee with warmth and tenderness. Detailed e xamination could not be done due to significant pain. NEUROLOGIC: Grossly nonfocal, moves all four extremities. PSYCHIATRY: Alert, awake, oriented x3. SKIN: Warm and dry. LYMPH NODES: No palpable lymph nodes in the neck. PERIPHERAL VASCULAR: Radial pulses palpable bilaterally, low volume. LABORATORY AND X-RAY FINDINGS: CBC showed WBC 8.7 with hemoglobin of 12.6 with 18% bandemia. Chemis tries showed sodium 134, potassium 4.5, chloride 100, bicarb 22, BUN 17, creatinine 1.07. Urinalysis yesterday showed 4-6 WBCs with 11-20 RBCs, synovial glucose was less than 7. Blood cultures 1/2 positive for Strep agalactiae hemolytic sensitivities pending. Synovial fluid cul ture showed group B Strep. Chest x-ray by my review was negative for infiltrate. Right knee x-ray showed prominent soft tissue edema with effusion. IMPRESSION: 1. Septic arthritis with group B streptococcus with bacteremia. 2. Obesity with a BMI 37. 3. Bilateral pulmonary embolism diagnosed in February, currently on Xarelto, diagnosed in February of this year, currently on Xarelto. 4. Upper respiratory tract infection. 5. Mild hyponatremia. 6. Dehydration. 7. Chronic kidney disease stage 2. PLAN: The patient will be monitored on the surgical floor. He has been started on ceftriaxone and v ancomycin, which will be continued. We will discuss with Dr. Narvaez if Xarelto needs to be held for surgery in a.m. Infectious Disease will be consulted. I discussed the case with Dr. Brice Key.Ez labs. IV hydration. Pain control. Plan of care was discussed with the patient in detail. He stated understanding.
[2017-05-16] MEDS ORDERED: VANCOMYCIN/RENALLY ADJUST ABX IVPB PRN (17:21)
[2017-05-16] MEDS ORDERED: Vancomycin HCl 1 GM in Premix Bag 1 BAG IVPB SCH (17:21)
[2017-05-16] MEDS ORDERED: Morphine 4 MG/ML VIAL SLOW IVP PRN (17:21)
[2017-05-16 17:28] VITALS: BMI 36.6
[2017-05-16 17:41] LABS: Bilirubin Negative (Negative); Blood, Urine Negative (Negative); Glucose, Urine (Dipstick) Negative (Negative); Ketone, Urine Negative (Negative); Nitrite Negative (Negative); Protein, Urine (Dipstick) Negative (Neg-Trace); Urobilinogen 0.2 mg/dL (0.2-1.0)
[2017-05-16 17:44] LABS: Bacteria/HPF None Seen HPF (None Seen); Hyaline Casts/LPF 0-3 HYALINE CAST LPF (0-3 Hyaline); RBC/HPF None Seen HPF (0-3); Squamous Epithelial None Seen HPF (0-3); WBC/HPF None Seen HPF (0-3)
[2017-05-16] MEDS: HYDROcodone/Acetaminophen 10/325 mg Tablet PO PRN ×2 (17:54→23:45)
[2017-05-16] MEDS ORDERED: Diabetic Tussin 200 MG/10 ML UDCUP PO PRN ×2 (19:13→20:42)
[2017-05-16] MEDS ORDERED: guaiFENesin ER 600 MG TAB PO SCH (19:15)
[2017-05-16] MEDS ORDERED: Chloraseptic Spray 180 ml Bottle PO PRN (20:42)
[2017-05-16] MEDS ORDERED: Cepastat Lozenges 1 LOZ PO PRN (20:42)
[2017-05-16] MEDS ORDERED: Ibuprofen 200 MG TAB PO PRN (20:44)
[2017-05-16] MEDS: Acetaminophen 325 MG TAB PO PRN (21:39)
[2017-05-16] MEDS: Fluticasone Propionate Nasal Spray 16 gm Bottle NASAL SCH (21:39)
[2017-05-17] MEDS: Vancomycin HCl 1.75 GM in Sodium Chloride 0.9% 500 ML IVPB SCH ×2 (02:03→18:11)
[2017-05-17] MEDS: Sodium Chloride 0.9% 1,000 ML IV SCH ×3 (02:04→18:21)
[2017-05-17] MEDS: guaiFENesin ER 600 MG TAB PO SCH ×2 (08:36→21:01)
[2017-05-17 08:52] LABS: Prothrombin Time 14.4 SEC (12.0-14.7)
[2017-05-17 08:53] LABS: PTT 46.1 SEC (22.9-36.1)
[2017-05-17 08:55] LABS: ALT (SGPT) 15 U/L (8-55); AST (SGOT) 14 U/L (5-34); Alkaline Phosphatase 101 U/L (40-150); Anion Gap 13 mmol/L (10-20); BUN (Urea Nitrogen) 11 mg/dL (8.9-20.6); Bilirubin, Total 0.4 mg/dL (0.2-1.2); Calc. Creatinine Clearance 171 mL/min (70-130); Calcium 9.4 mg/dL (7.8-10.44); Carbon Dioxide 26 mmol/L (22-29); Chloride 103 mmol/L (98-107); Estimated GFR-MDRD Greater than 90; Globulin 3.7 g/dL (2.4-3.5)
[2017-05-17] MEDS ORDERED: Propofol 200 MG/20 ML VIAL ONE (09:52)
[2017-05-17] MEDS ORDERED: Ketorolac Tromethamine 30 MG/ML VIAL ONE (09:52)
[2017-05-17] MEDS ORDERED: Lidocaine 1% PF 5 ML VIAL ONE (09:52)
[2017-05-17] MEDS ORDERED: Ondansetron HCl/PF 4 MG/2 ML Vial ONE (09:52)
[2017-05-17 10:05] LABS: Band 5 % (5-11); Hematocrit 33.3 % (42.0-52.0); Hypochromia SLIGHT = 6-15 cells (100X) (0-5/hpf); Mean Platelet Volume 7.2 fL (7.4-10.4); Neutrophil 83 % (42-75); Reactive Lymphocytes 2 % (0-10); Red Blood Cell (RBC) Count 3.41 mill/uL (4.70-6.10); White Blood Cell (WBC) Count 9.3 thou/uL (4.8-10.8)
[2017-05-17] MEDS ORDERED: Midazolam HCl 2 mg/2 ml Vial ONE ×2 (12:45→13:15)
[2017-05-17] MEDS ORDERED: Fentanyl 100 MCG/2 ML VIAL ONE ×4 (12:45→15:47)
[2017-05-17] MEDS ORDERED: Ropivacaine 0.2% HCl/PF 0 ML ONE (12:46)
[2017-05-17] MEDS ORDERED: Neomycin-Polymyxin 1 ML AMP ONE ×2 (13:37→13:51)
[2017-05-17] MEDS ORDERED: Tobramycin 80 MG/2 ML VIAL ONE (14:52)
[2017-05-17] MEDS ORDERED: Meperidine HCl/PF 25 MG/ML VIAL SLOW IVP PRN (14:56)
[2017-05-17] MEDS ORDERED: HYDROmorphone 2 MG/ML VIAL SLOW IVP PRN (14:56)
[2017-05-17] MEDS ORDERED: Morphine Sulfate 2 MG/ML SYRINGE SLOW IVP PRN (14:56)
[2017-05-17] MEDS ORDERED: Promethazine HCl 25 MG/ML VIAL IM PRN ×2 (14:56→16:28)
[2017-05-17] MEDS ORDERED: Promethazine HCl 25 MG/ML VIAL SLOW IVP PRN (14:56)
[2017-05-17] MEDS ORDERED: Ondansetron HCl/PF 4 MG/2 ML Vial IVP PRN ×2 (14:56→16:28)
[2017-05-17] MEDS ORDERED: Fentanyl 20 MCG/ML 250 ML ONE (16:22)
[2017-05-17] MEDS ORDERED: HYDROcodone/Acetaminophen 10/325 mg Tablet PO PRN (16:27)
[2017-05-17] MEDS ORDERED: traMADol HCl 50 MG TAB PO PRN (16:27)
[2017-05-17] MEDS ORDERED: diphenhydrAMINE 25 MG CAP PO PRN (16:28)
[2017-05-17] MEDS ORDERED: Fentanyl 5000 MCG/250 ML CADD IVPB PRN (16:28)
[2017-05-17] MEDS ORDERED: Naloxone HCl 0.4 mg/ml Vial IV PRN (16:28)
[2017-05-17] MEDS ORDERED: Zolpidem Tartrate 5 MG TAB PO PRN (16:28)
[2017-05-17] MEDS ORDERED: diphenhydrAMINE 50 MG/ML VIAL IM PRN (16:28)
[2017-05-17] MEDS ORDERED: diphenhydrAMINE 50 MG/ML VIAL IVP PRN (16:28)
[2017-05-17] MEDS ORDERED: Communication Order-Pharmacy FS SCH (16:30)
[2017-05-17] MEDS: cefTRIAXone\\ROCEPHIN 2 GM in Sodium Chloride 0.9% 100 ML IVPB SCH (18:12)
[2017-05-17] MEDS: Ketorolac Tromethamine 30 MG/ML VIAL IVP SCH ×2 (18:16→23:42)
--- NOTE | 2017-05-17 18:43 | OP ---
DATE OF OPERATION: 05/17/2017 PREOPERATIVE DIAGNOSES: Status post right total knee replacement with acute infection into the right knee. POSTOPERATIVE DIAGNOSES: Status post right total knee replacement with acute infection into the righ t knee. PROCEDURE: Irrigation and debridement of the right knee with tibial polyethylene swap. SURGEON: Cedric Narvaez M.D. ANESTHESIA: General. TECHNIQUE: The patient had already had cultures obtained from the knee and from blood. He has been on IV antibiotics. He was taken to the operating room and placed in the supine position. Satisfacto ry general anesthesia was performed. The right lower extremity was sterilely prepped and draped in t he usual fashion. On examination of the right knee, the patient lacked the last 15 degrees of full e xtension and had 85 degrees of flexion. There was a significant amount of swelling in the right knee . The knee was stable. A anterior incision was made through the previous scar and the subcutaneous tissue was sharply divided from the underlying retinacular tissue, encountered a defect in the superi or lateral retinacular tissue and there was a brownish fluid encountered; since the lateral retinacul um already had tearing in it, it was brought down sharply and the knee joint was entered through the lateral retinacular approach. The brownish fluid was irrigated out of the knee joint. There was efra te a bit of synovitis which was removed both sharply and with a rongeur and the knee joint was then c opiously irrigated with antibiotic solution using the high speed food service representative. The polyethylene liner t hat was locked into the tibia was removed. The tissue more in the posterior aspect of the knee was d ebrided as well. After all the obvious inflamed synovial tissue was debrided, the knee joint was the n irrigated with Betadine, which was left in the knee for approximately 1 minute. It was then aspira shayy, cleaned up again with the Ringer's lactate and then the knee joint was irrigated with hydrogen p eroxide. Knee was then again cleansed with the antibiotic solution using the high speed food service representative. The new polyethylene was locked into the tibial tray. It was a DePuy PFC Sigma. Tibial insert was a size 5 and was 8 mm in thickness. After it was locked into place, the knee joint again was irrigate d. Some gentle manipulation was performed and I was able to get the knee fully extended and 100 degr ees of flexion. Stimulan Rapid Cure beads were then made using vancomycin. They were allowed to hard en and then then was placed into the knee joint. DePuy was also placed in the more superficial layer . The lateral retinacular tissue was then closed using #1 Vicryl and the fat and subcutaneous tissue was closed with 0 Vicryl. Skin was closed with skin niki. Sterile dressing was applied. The to urniquet was released. The patient was then awakened and transferred to recovery room in stable cond ition. ESTIMATED BLOOD LOSS: 50 mL COMPLICATIONS: None. TOURNIQUET TIME: 62 minutes.
--- NOTE | 2017-05-17 18:47 | CON ---
DATE OF CONSULTATION: 05/17/2017. HISTORY OF PRESENT ILLNESS: The patient is a 46-year-old white male who had severe traumatic arthrit is in the right knee. I performed a right total knee replacement on 03/23/2017, seven weeks ago. patient did well right after surgery, but then soon after surgery developed swelling in his right l eg and shortness of breath, found to have bilateral pulmonary emboli. He had to be admitted and now is on outpatient Xarelto. The patient and his state that last , 4 days ago on , the patient developed upper respiratory type problem and started running fever. He came to see me in my office the following day on Wednesday, but the history that he gave me was that he was in physica l therapy and he was doing a different exercise and felt a pop and never mentioned having fever. He did have increased swelling and because of the pop and the increased swelling, I felt at that point, it was probably due to breaking of the scar tissue. The patient because of increasing pain and swell ing, he then presented to the emergency room on Wednesday where it was reported that his temperature w ent up as high as 104 and he was having chills. Blood cultures were obtained. Also, fluid was taken from his knee. Blood cultures have already grown Streptococcus. The patient was started on IV anti biotics and I was consulted for his right knee and the septic arthritis in his right total knee repla cement. PHYSICAL EXAMINATION: EXTREMITIES: The right knee has significant amount of swelling in the knee. He is tender diffusely around the knee. Range of motion is 15-80 degrees. His knee is stable. There is no erythema and no drainage. There is just mild swelling in the right leg, ankle and foot. VITAL SIGNS: Last night at midnight, temperature was 101.8. His latest temperature is 99.5. IMPRESSION: Septic right total knee replacement, apparently with Streptococcus. PLAN: The patient will be taken to the operating room where irrigation and debridement of the right knee as well as a polyethylene exchange from the tibia. Plan also on putting in antibiotic beads francisco t absorb overtime. He will continue with IV antibiotics. Will consult Dr. Jurado for his expertise o n Infectious Disease.
--- NOTE | 2017-05-17 19:37 | PDOC.PN ---
- Subjective Encounter Start Date: 05/17/17 Encounter Start Time: 19:00 Patient seen and examined. s/p washout. R knee pain +. No overnight events - Objective MAR Reviewed: Yes Vital Signs & Weight: Vital Signs (12 hours) Temp Pulse Resp BP Pulse Ox 05/17/17 11:15 99.5 F 98 24 H 113/74 95 I&O: 05/16/17 05/17/17 05/18/17 06:59 06:59 06:59 Intake Total 1550 Balance 1550 Result Diagrams: 05/18/17 04:52 05/18/17 04:52 Phys Exam - Physical Examination Constitutional: NAD Respiratory: no wheezing, no rhonchi Cardiovascular: RRR, no rub Gastrointestinal: soft, non-tender, positive bowel sounds Musculoskeletal: no edema Neurological: moves all 4 limbs Dx/Plan - Plan DVT proph w/SCDs IMPRESSION: 1. Septic arthritis with group B streptococcus with bacteremia. 2. Obesity with a BMI 37. 3. Bilateral pulmonary embolism - on Xarelto 4. Upper respiratory tract infection. 5. Mild hyponatremia. 6. Dehydration. 7. Chronic kidney disease stage 2. PLAN: * Restart Xarelto 05/18 * Cont Atbx * Await ID input * Cont other meds as below * Pain control Review of Systems - Review of Systems Respiratory: negative: Cough, Dry, Shortness of Breath, Hemoptysis, SOB with Excertion, Pleuritic Pain, Sputum, Wheezing Cardiovascular: negative: Chest Pain, Palpitations, Orthopnea, Paroxysmal Noc. Dyspnea, Edema, Light Headedness - Medications/Allergies Allergies/Adverse Reactions: Allergies Allergy/AdvReac Type Severity Reaction Status Date / Time No Known Allergies Allergy Verified 08/14/16 08:49 Medications: Current Medications Acetaminophen (Tylenol) 650 mg PO Q4H PRN PRN Reason: TEMP > 101 Last Admin: 05/16/17 21:39 Dose: 650 mg Diphenhydramine HCl (Benadryl) 25 mg IVP Q3H PRN PRN Reason: Itching Diphenhydramine HCl (Benadryl) 25 mg PO Q3H PRN PRN Reason: Itching Diphenhydramine HCl (Benadryl) 25 mg IM Q3H PRN PRN Reason: Itching Fentanyl (Fentanyl Cadd) 0 mcg IVPB INF PRN PRN Reason: Pain Fluticasone Propionate (Flonase Nasal [place]) 0 gm NASAL HS [facility] Last Admin: 05/16/17 21:39 Dose: 2 spr Guaifenesin (Mucinex) 600 mg PO Q12HR [facility] Last Admin: 05/17/17 08:36 Dose: Not Given Guaifenesin (Robitussin Sf) 200 mg PO Q4H PRN PRN Reason: Cough Ceftriaxone Sodium 2 gm/ (Sodium Chloride) 100 mls @ 200 mls/hr IVPB 1500 [facility] Last Admin: 05/17/17 18:12 Dose: Not Given Vancomycin HCl 1.75 gm/ Sodium (Chloride) 500 mls @ 250 mls/hr IVPB 0200,1400 [facility] Last Admin: 05/17/17 18:11 Dose: Not Given Sodium Chloride (Normal Saline 0.9%) 1,000 mls @ 100 mls/hr IV .Q10H [facility] Last Admin: 05/17/17 18:21 Dose: 1,000 mls Ketorolac Tromethamine (Toradol) 30 mg IVP Q6HR [facility] Stop: 05/19/17 18:01 Last Admin: 05/17/17 18:16 Dose: 30 mg Miscellaneous Medication (Pharmacy To Dose) 1 each IVPB PRN PRN PRN Reason: Pharmacy to dose Naloxone HCl (Narcan) 0.2 mg IV Q5MIN PRN PRN Reason: Opiate Reversal Ondansetron HCl (Zofran) 4 mg IVP Q6H PRN PRN Reason: Nausea/Vomiting Phenol (Chloraseptic [place] 180 Ml Bot) 0 ml PO BIDPRN PRN PRN Reason: Sore Throat Promethazine HCl (Phenergan) 12.5 mg IM Q4H PRN PRN Reason: Nausea/Vomiting Rivaroxaban (Xarelto) 20 mg PO 1700 ANIKA Sodium Chloride (Flush - Normal Saline) 10 ml IVF Q12HR [facility] Last Admin: 05/17/17 08:36 Dose: Not Given Sodium Chloride (Flush - Normal Saline) 10 ml IVF PRN PRN PRN Reason: Saline Flush Throat Lozenges (Cepastat Lozenges) 1 bora PO Q2H PRN PRN Reason: Sore Throat Zolpidem Tartrate (Ambien) 5 mg PO HSPRN PRN PRN Reason: Insomnia
[2017-05-17] MEDS: Fluticasone Propionate Nasal Spray 16 gm Bottle NASAL SCH (21:02)
[2017-05-18 01:23] LABS: Vancomycin, Trough 13.4 ug/mL
[2017-05-18] MEDS: Vancomycin HCl 1.75 GM in Sodium Chloride 0.9% 500 ML IVPB SCH (02:45)
[2017-05-18 05:46] LABS: ALT (SGPT) 17 U/L (8-55); AST (SGOT) 22 U/L (5-34); Alkaline Phosphatase 109 U/L (40-150); Anion Gap 11 mmol/L (10-20); BUN (Urea Nitrogen) 9 mg/dL (8.9-20.6); Bilirubin, Total 0.4 mg/dL (0.2-1.2); Calc. Creatinine Clearance 157 mL/min (70-130); Calcium 8.5 mg/dL (7.8-10.44); Carbon Dioxide 26 mmol/L (22-29); Chloride 104 mmol/L (98-107); Estimated GFR-MDRD 84; Globulin 3.1 g/dL (2.4-3.5); Magnesium 2.2 mg/dL (1.6-2.6); Protein, Total 6.1 g/dL (6.0-8.3)
[2017-05-18 06:01] LABS: Band 5 % (5-11); Hematocrit 28.2 % (42.0-52.0); Macrocytosis SLIGHT = 6-15 cells (100X) (0-5/hpf); Mean Platelet Volume 6.9 fL (7.4-10.4); Neutrophil 75 % (42-75); Reactive Lymphocytes 3 % (0-10); Red Blood Cell (RBC) Count 2.87 mill/uL (4.70-6.10); White Blood Cell (WBC) Count 7.4 thou/uL (4.8-10.8)
[2017-05-18] MEDS: Ketorolac Tromethamine 30 MG/ML VIAL IVP SCH ×4 (06:01→23:37)
[2017-05-18] MEDS: Sodium Chloride 0.9% 1,000 ML IV SCH ×3 (08:07→20:41)
[2017-05-18] MEDS: guaiFENesin ER 600 MG TAB PO SCH ×2 (09:10→20:31)
--- NOTE | 2017-05-18 12:25 | PRG ---
DATE OF SERVICE: 05/18/2017 HISTORY OF PRESENT ILLNESS: Mr. Srinivasan is 1 day status post irrigation and debridement with poly ethylene exchange on his right total knee replacement. At that time, I also added vancomycin impregn ated dissolvable beads. The patient states that he is doing well. He is feeling much better with re mallory to pain in the right knee. The patient's maximum temperature is 99.5 which was at midnight compared to yesterday in which maximu m temperature was 102. Rest of his vital signs are stable. PHYSICAL EXAMINATION: VITAL SIGNS: Blood pressure is 157/73, O2 saturation 95% on room air, pulse 96, respiratory rate 16. EXTREMITIES: Right lower extremity is neurovascularly intact. LABORATORY DATA: CBC shows white count of 7.4, which is down from 9.3 from yesterday. Hemoglobin is 9.2, hematocrit 28.2, platelet count 271,000. Glucose slightly elevated at 123. Remaining values a re normal. Blood cultures and culture from the right knee which was done in the emergency room on grew out group B Streptococcus agalactiae, which was sensitive to all antibiotics tested. PLAN: The patient will continue with IV antibiotics. Dr. Jurado has been consulted and he will deter mine the best route and what antibiotics and how long the antibiotics will be given. In the meantime , he will continue with the IV antibiotics as ordered presently. He can weightbear as tolerated on t he right lower extremity. He may increase his activity as tolerated. He will be started back on his Xarelto today.
[2017-05-18] MEDS: Potassium Chloride 10 MEQ TAB PO SCH ×2 (12:33→16:19)
--- NOTE | 2017-05-18 15:25 | CON ---
DATE OF CONSULTATION: 05/18/2017 REASON FOR CONSULTATION: Right TKR infection. HISTORY OF PRESENT ILLNESS: This is a 46-year-old, who has a history of arthroplasty right knee in February with subsequent development of inflammatory changes. Patient was admitted and had a washout with retention and exchange of the liner. Group B Streptococcus has been retrieved from the site. He denies any headaches, visual symptoms, sore throat, odynophagia, dysphagia, no cough or sputum production, chest pain, no abdominal pain, or diarrhea. Moderate pain in the right knee. No other skin disorder. No genitourinary symptoms. No neurological symptoms. PAST MEDICAL HISTORY: Right TKR on 03/16/2017 at [facility]. Pulmonary embolism, managed with Xarelto. PAST SURGICAL HISTORY: As above plus ventral hernia repair, left knee arthroscopy. ALLERGIES: None. MEDICATIONS: Currently ceftriaxone, diphenhydramine, guaifenesin, promethazine , and vancomycin. FAMILY HISTORY: Noncontributory except for thromboembolism associated with malignancy in the father. SOCIAL HISTORY: Works for a company in [place], lives with family, never smoker. PHYSICAL EXAMINATION: VITAL SIGNS: T-max 102.0, currently 98.3, otherwise signs are not remarkable. SKIN: With the right knee implant site with usual postop findings, peripheral IV access. No lymphadenopathy. HEENT: Noncontributory. NECK: Supple, no jugular venous distention. LUNGS: With symmetric clear breath sounds. HEART: S1 and S2, regular rate. No S3 or S4. ABDOMEN: Soft, not distended or tender. No ascites. No bladder distention. The right knee inflammatory changes expected other joints without inflammatory change. Pulses are 1+ in dorsalis pedis. He moves extremities equally except for limitations imposed by the right knee inflammatory process. NEUROLOGIC: Cognitive function normal. LABORATORY DATA: WBC count 7.4, hemoglobin 9.2, MCV 98, platelets 271, and 75% neutrophils, 5% bands, 10% lymphocytes. INR 1.1. Sodium 138, creatinine 0.97. Liver profile normal. Albumin 3.0. Urinalysis normal. Vancomycin trough 13.4. Microbiology as noted above. ASSESSMENT: Right total knee replacement infection secondary to group B Streptococcus status post washout with retention of the implant. DISCUSSION: Patient now will continue on Rocephin intravenously for 42 days plus oral rifampin for 42 days as well, end date of therapy will be around 06/27. Weekly CBC, CRP, and comprehensive metabolic panel. Discussed potential adverse reactions from the medications including skin and gastrointestinal adverse reactions and kidney, liver, and bone marrow toxicity. I also discussed potential adverse reactions from PICC line placement. After the completion of the initial phase of therapy, then transition to Keflex plus rifampin for 3 months and then after that suppressive cephalosporin for a protracted period of time. MTDD
[2017-05-18] MEDS: cefTRIAXone\\ROCEPHIN 2 GM in Sodium Chloride 0.9% 100 ML IVPB SCH (15:41)
[2017-05-18] MEDS: Rivaroxaban 10 MG TAB PO SCH ×2 (16:20→16:21)
[2017-05-18] MEDS: Fluticasone Propionate Nasal Spray 16 gm Bottle NASAL SCH (20:40)
[2017-05-18] MEDS: Rifampin 300 MG CAP PO SCH (20:42)
--- NOTE | 2017-05-18 21:12 | PDOC.PN ---
- Subjective Encounter Start Date: 05/18/17 Encounter Start Time: 09:00 Patient seen and examined. No new complaints. Pain controlled. No overnight events - Objective MAR Reviewed: Yes Vital Signs & Weight: Vital Signs (12 hours) Temp Pulse Resp BP Pulse Ox 05/18/17 17:45 100.1 F H 95 18 145/89 H 96 05/18/17 12:00 98.3 F 95 20 128/74 96 I&O: 05/17/17 05/18/17 05/19/17 06:59 06:59 06:59 Intake Total 1550 4050 Output Total 1200 700 Balance 1550 -1200 3350 Result Diagrams: 05/18/17 04:52 05/18/17 04:52 Phys Exam - Physical Examination Constitutional: NAD Respiratory: no wheezing, no rhonchi Cardiovascular: RRR, no rub Gastrointestinal: soft, non-tender, positive bowel sounds Musculoskeletal: no edema Dx/Plan - Plan IMPRESSION: 1. Septic arthritis with group B streptococcus with bacteremia. on Ceftriaxone with Vanc 2. Obesity with a BMI 37. 3. Bilateral pulmonary embolism - on Xarelto 4. Upper respiratory tract infection. - improved 5. Mild hyponatremia. 6. Dehydration. 7. Chronic kidney disease stage 2. 8. Hypokalemia PLAN: * Xarelto restarted * Cont Atbx * Await ID input * Replace Potassium * Cont other meds as below . Review of Systems - Review of Systems Respiratory: negative: Cough, Dry, Shortness of Breath, Hemoptysis, SOB with Excertion, Pleuritic Pain, Sputum, Wheezing Cardiovascular: negative: chest pain, palpitations, orthopnea, paroxysmal nocturnal dyspnea, edema, light headedness - Medications/Allergies Allergies/Adverse Reactions: Allergies Allergy/AdvReac Type Severity Reaction Status Date / Time No Known Allergies Allergy Verified 08/14/16 08:49 Medications: Current Medications Acetaminophen (Tylenol) 650 mg PO Q4H PRN PRN Reason: TEMP > 101 Last Admin: 05/16/17 21:39 Dose: 650 mg Diphenhydramine HCl (Benadryl) 25 mg IVP Q3H PRN PRN Reason: Itching Diphenhydramine HCl (Benadryl) 25 mg PO Q3H PRN PRN Reason: Itching Diphenhydramine HCl (Benadryl) 25 mg IM Q3H PRN PRN Reason: Itching Fentanyl (Fentanyl [place]) 0 mcg IVPB INF PRN PRN Reason: Pain Fluticasone Propionate (Flonase Nasal [place]) 0 gm NASAL HS [facility] Last Admin: 05/18/17 20:40 Dose: 2 spr Guaifenesin (Mucinex) 600 mg PO Q12HR [facility] Last Admin: 05/18/17 20:31 Dose: 600 mg Guaifenesin (Robitussin Sf) 200 mg PO Q4H PRN PRN Reason: Cough Ceftriaxone Sodium 2 gm/ (Sodium Chloride) 100 mls @ 200 mls/hr IVPB 1500 [facility] Last Admin: 05/18/17 15:41 Dose: 100 mls Sodium Chloride (Normal Saline 0.9%) 1,000 mls @ 100 mls/hr IV .Q10H [facility] Last Admin: 05/18/17 20:41 Dose: 1,000 mls Vancomycin HCl 2 gm/ Sodium (Chloride) 500 mls @ 250 mls/hr IVPB 0300,1500 [facility] Last Admin: 05/18/17 15:41 Dose: 500 mls Ketorolac Tromethamine (Toradol) 30 mg IVP Q6HR [facility] Stop: 05/19/17 18:01 Last Admin: 05/18/17 17:22 Dose: 30 mg Miscellaneous Medication (Pharmacy To Dose) 1 each IVPB PRN PRN PRN Reason: Pharmacy to dose Naloxone HCl (Narcan) 0.2 mg IV Q5MIN PRN PRN Reason: Opiate Reversal Ondansetron HCl (Zofran) 4 mg IVP Q6H PRN PRN Reason: Nausea/Vomiting Phenol (Chloraseptic [place] 180 Ml Bot) 0 ml PO BIDPRN PRN PRN Reason: Sore Throat Potassium Chloride (Klor-Con 10) 10 meq PO TID-WM [facility] Last Admin: 05/18/17 16:19 Dose: 10 meq Promethazine HCl (Phenergan) 12.5 mg IM Q4H PRN PRN Reason: Nausea/Vomiting Rifampin (Rifadin) 300 mg PO 1000,2200 [facility] Last Admin: 05/18/17 20:42 Dose: 300 mg Rivaroxaban (Xarelto) 20 mg PO 1700 [facility] Last Admin: 05/18/17 16:21 Dose: Not Given Sodium Chloride (Flush - Normal Saline) 10 ml IVF Q12HR [facility] Last Admin: 05/18/17 20:31 Dose: Not Given Sodium Chloride (Flush - Normal Saline) 10 ml IVF PRN PRN PRN Reason: Saline Flush Throat Lozenges (Cepastat Lozenges) 1 bora PO Q2H PRN PRN Reason: Sore Throat Zolpidem Tartrate (Ambien) 5 mg PO HSPRN PRN PRN Reason: Insomnia
[2017-05-18] MEDS: Acetaminophen 325 MG TAB PO PRN (23:39)
[2017-05-19] MEDS: Ketorolac Tromethamine 30 MG/ML VIAL IVP SCH ×3 (05:10→17:31)
[2017-05-19] MEDS ORDERED: Potassium Chloride 20 MEQ TAB PO SCH (08:00)
[2017-05-19] MEDS: guaiFENesin ER 600 MG TAB PO SCH ×2 (08:17→21:42)
[2017-05-19] MEDS: Rifampin 300 MG CAP PO SCH ×2 (09:09→21:42)
--- NOTE | 2017-05-19 11:40 | SPC ---
PICC PLACEMENT ULTRASOUND GUIDED VENOUS ACCESS: (Peripherally Inserted Central Catheter) HISTORY: 46-year-old male with septic right knee joint requiring long-term IV antibiotics. TECHNIQUE: Catheter caliber: 5 Slovenian Catheter trim length: 46 cm Catheter lumen number: Single Catheter tip location: Superior vena cava/Right atrial junction Vein accessed: Left basilic Signed, informed consent was obtained. A tourniquet was applied at the proximal aspect of the arm. The arm was prepared and draped in the usual sterile fashion. A 25 gauge needle was used to apply bu ffered lidocaine superficially. The vein was punctured with a 21 gauge micropuncture needle under ul trasound guidance. A 0.018 inch guide wire was advanced through the micropuncture needle and into th e vein. Under fluoroscopic guidance, the guide wire was advanced to the right atrium. The PICC (per ipherally inserted central catheter) was flushed and trimmed to the appropriate length. The skin pun cture hole was widened with a blade. The micropuncture needle was exchanged over the guide wire for a 5 Slovenian peel-away dilator sheath. The dilator was exchanged over the guide wire for the PICC, whi ch was then further advanced under fluoroscopy. The sheath and guide wire were removed. The PICC wa s flushed again and secured in place at the arm. The patient tolerated the procedure well. There wa s no complication. IMPRESSION: Successful placement of PICC (peripherally inserted central catheter). jenna POS: [facility]
[2017-05-19] MEDS ORDERED: HYDROcodone/Acetaminophen 10/325 mg Tablet PO PRN ×2 (12:11)
[2017-05-19] MEDS ORDERED: traMADol HCl 50 MG TAB PO PRN ×2 (12:12)
[2017-05-19] MEDS: Sodium Chloride 0.9% 1,000 ML IV SCH (13:00)
[2017-05-19] MEDS ORDERED: Heparin 1,000 UNITS/ML VIAL ONE (14:56)
[2017-05-19] MEDS: cefTRIAXone\\ROCEPHIN 2 GM in Sodium Chloride 0.9% 100 ML IVPB SCH (15:09)
[2017-05-19] MEDS: Rivaroxaban 10 MG TAB PO SCH (15:16)
[2017-05-19] MEDS: Acetaminophen 325 MG TAB PO PRN (17:31)
--- NOTE | 2017-05-19 17:47 | PRG ---
DATE OF SERVICE: 05/19/2017 SUBJECTIVE: Patient had recrudescence of fever, some nasal symptoms and cough, congestion. No heada ches, no chest pain, no abdominal pain, no diarrhea, voiding without difficulty. Not much pain in th e right knee. OBJECTIVE: T-max was 103 yesterday at 11:00 p.m., it is 100.9 at this time. Blood pressure 130/69, pulse 99, respirations 16 to 20, O2 sat 95%. SKIN: Shows the right knee area with the usual appearance postoperatively. EYES: Ocular movements are conjugate. LUNGS: Symmetric air entry. Nasal passages are obstructed. ABDOMEN: Soft, not tender. LABORATORY DATA: White cell count 7.4, hemoglobin 9.2, platelets 271, 75% neutrophils, 5% bands. Cr eatinine 0.97, sodium 138, potassium 3.4. Liver profile normal. Microbiology as noted before, group B strep. 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 The patient has had previous history of thromboembolism, is back on Xarelto. This differenti al diagnosis includes residual febrile response associated with the right knee inflammatory process o r an alternate process such as influenza acquired in the hospital where the patient was brought from outside or thromboembolism. All other complications are not apparent at this time. Continue Rocephi n and rifampin. Repeat CBC and chemistry panel tomorrow. Check influenza. Check respiratory virus PCR panel.
--- NOTE | 2017-05-19 18:00 | PDOC.PN ---
- Subjective Encounter Start Date: 05/19/17 Encounter Start Time: 16:00 Patient seen and examined. No new complaints. Febrile overnight - Objective MAR Reviewed: Yes Vital Signs & Weight: Vital Signs (12 hours) Temp Pulse Resp BP Pulse Ox 05/19/17 15:20 100.9 F H 99 20 130/69 95 05/19/17 12:25 100.7 F H 99 20 137/82 95 05/19/17 07:15 99.8 F H 97 16 125/77 95 I&O: 05/18/17 05/19/17 05/20/17 06:59 06:59 06:59 Intake Total 4910 1300 Output Total 1200 1200 Balance -1200 3710 1300 Result Diagrams: 05/18/17 04:52 05/18/17 04:52 Phys Exam - Physical Examination Constitutional: NAD Respiratory: no wheezing, no rhonchi Cardiovascular: RRR, no rub Gastrointestinal: soft, non-tender, positive bowel sounds Musculoskeletal: no edema Neurological: moves all 4 limbs Dx/Plan - Plan cont current plan of care, continue antibiotics, incentive spirometry IMPRESSION: 1. Septic arthritis with group B streptococcus with bacteremia. on Ceftriaxone with Rifampin 2. Obesity with a BMI 37. 3. h/o Bilateral pulmonary embolism - on Xarelto 4. Upper respiratory tract infection. - r/o Flu 5. Mild hyponatremia. 6. Dehydration. 7. Chronic kidney disease stage 2. 8. Hypokalemia - replaced PLAN: * Xarelto restarted today (did not get yesterday due to PICC line) * Cont Atbx * ID following * AM labs * Cont other meds as below * Resp viral panel ordered Review of Systems - Review of Systems Respiratory: negative: Cough, Dry, Shortness of Breath, Hemoptysis, SOB with Excertion, Pleuritic Pain, Sputum, Wheezing Cardiovascular: negative: chest pain, palpitations, orthopnea, paroxysmal nocturnal dyspnea, edema, light headedness - Medications/Allergies Allergies/Adverse Reactions: Allergies Allergy/AdvReac Type Severity Reaction Status Date / Time No Known Allergies Allergy Verified 08/14/16 08:49 Medications: Current Medications Acetaminophen (Tylenol) 650 mg PO Q4H PRN PRN Reason: TEMP > 101 Last Admin: 05/19/17 17:31 Dose: 650 mg Hydrocodone Bitart/Acetaminophen ([place] 10/325) 1 tab PO Q4H PRN PRN Reason: PAIN SCALE 5-7 Hydrocodone Bitart/Acetaminophen ([place] 10/325) 2 tab PO Q4H PRN PRN Reason: PAIN SCALE 8-10 Diphenhydramine HCl (Benadryl) 25 mg IVP Q3H PRN PRN Reason: Itching Diphenhydramine HCl (Benadryl) 25 mg PO Q3H PRN PRN Reason: Itching Diphenhydramine HCl (Benadryl) 25 mg IM Q3H PRN PRN Reason: Itching Fluticasone Propionate (Flonase Nasal [place]) 0 gm NASAL HS [facility] Last Admin: 05/18/17 20:40 Dose: 2 spr Guaifenesin (Mucinex) 600 mg PO Q12HR [facility] Last Admin: 05/19/17 08:17 Dose: 600 mg Guaifenesin (Robitussin Sf) 200 mg PO Q4H PRN PRN Reason: Cough Ceftriaxone Sodium 2 gm/ (Sodium Chloride) 100 mls @ 200 mls/hr IVPB 1500 [facility] Last Admin: 05/19/17 15:09 Dose: 100 mls Sodium Chloride (Normal Saline 0.9%) 1,000 mls @ 100 mls/hr IV .Q10H [facility] Last Admin: 05/19/17 13:00 Dose: Not Given Ketorolac Tromethamine (Toradol) 30 mg IVP Q6HR [facility] Stop: 05/19/17 18:01 Last Admin: 05/19/17 17:31 Dose: 30 mg Miscellaneous Medication (Pharmacy To Dose) 1 each IVPB PRN PRN PRN Reason: Pharmacy to dose Naloxone HCl (Narcan) 0.2 mg IV Q5MIN PRN PRN Reason: Opiate Reversal Ondansetron HCl (Zofran) 4 mg IVP Q6H PRN PRN Reason: Nausea/Vomiting Phenol (Chloraseptic [place] 180 Ml Bot) 0 ml PO BIDPRN PRN PRN Reason: Sore Throat Polyethylene Glycol (Miralax) 17 gm PO DAILY [facility] Promethazine HCl (Phenergan) 12.5 mg IM Q4H PRN PRN Reason: Nausea/Vomiting Rifampin (Rifadin) 300 mg PO 1000,2200 [facility] Last Admin: 05/19/17 09:09 Dose: 300 mg Rivaroxaban (Xarelto) 20 mg PO 1700 [facility] Last Admin: 05/19/17 15:16 Dose: 20 mg Senna/Docusate Sodium (Senokot S) 1 tab PO BID [facility] Sodium Chloride (Flush - Normal Saline) 10 ml IVF Q12HR [facility] Last Admin: 05/19/17 08:18 Dose: Not Given Sodium Chloride (Flush - Normal Saline) 10 ml IVF PRN PRN PRN Reason: Saline Flush Throat Lozenges (Cepastat Lozenges) 1 bora PO Q2H PRN PRN Reason: Sore Throat Tramadol HCl (Ultram) 50 mg PO Q6H PRN PRN Reason: PAIN SCALE 1-3 Tramadol HCl (Ultram) 100 mg PO Q6H PRN PRN Reason: PAIN SCALE 3-4 Zolpidem Tartrate (Ambien) 5 mg PO HSPRN PRN PRN Reason: Insomnia
[2017-05-19] MEDS: Fluticasone Propionate Nasal Spray 16 gm Bottle NASAL SCH (21:42)
[2017-05-19] MEDS: Senokot S 8.6-50 MG TAB PO SCH (21:42)
[2017-05-20] MEDS: Sodium Chloride 0.9% 1,000 ML IV SCH ×3 (00:25→21:35)
[2017-05-20 06:21] LABS: #Eosinphils 0.1 thou/uL (0.0-0.7); #Lymphocytes 0.8 thou/uL (1.20-3.40); #Monocytes 0.5 thou/uL (0.11-0.59); #Neutrophils 7.3 thou/uL (1.40-6.50); %Eosinophils 1.5 % (0.0-10.0); %Lymphocytes 9.2 % (21.0-51.0); %Monocytes 6.2 % (0.0-10.0); Mean Platelet Volume 6.3 fL (7.4-10.4); Red Blood Cell (RBC) Count 2.54 mill/uL (4.70-6.10); White Blood Cell (WBC) Count 8.8 thou/uL (4.8-10.8)
[2017-05-20 06:55] LABS: Anion Gap 12 mmol/L (10-20); BUN (Urea Nitrogen) 8 mg/dL (8.9-20.6); Calc. Creatinine Clearance 164 mL/min (70-130); Calcium 9.1 mg/dL (7.8-10.44); Carbon Dioxide 27 mmol/L (22-29); Chloride 104 mmol/L (98-107); Estimated GFR-MDRD 88; Magnesium 1.7 mg/dL (1.6-2.6)
[2017-05-20] MEDS ORDERED: Potassium Chloride 10 MEQ TAB PO SCH (08:15)
[2017-05-20] MEDS: guaiFENesin ER 600 MG TAB PO SCH ×2 (08:48→21:21)
[2017-05-20] MEDS: Polyethylene Glycol 3350 17 GM Packet PO SCH (08:48)
[2017-05-20] MEDS: Senokot S 8.6-50 MG TAB PO SCH ×2 (08:48→21:22)
[2017-05-20] MEDS: Rifampin 300 MG CAP PO SCH ×2 (09:08→21:24)
--- NOTE | 2017-05-20 09:33 | PDOC.PN ---
- Subjective Encounter Start Date: 05/20/17 Encounter Start Time: 09:23 Patient seen and examined. No new complaints. No overnight events. RN reported bleeding from the incision. - Objective MAR Reviewed: Yes Vital Signs & Weight: Vital Signs (12 hours) Temp Pulse Resp BP Pulse Ox 05/20/17 08:11 98.9 F 88 20 125/76 98 05/20/17 07:15 98.9 F 88 20 05/20/17 04:34 98.8 F 89 16 100/53 L 92 L 05/20/17 00:34 99.0 F 93 18 120/75 95 I&O: 05/19/17 05/20/17 05/21/17 06:59 06:59 06:59 Intake Total 4910 1300 Output Total 1200 Balance 3710 1300 Result Diagrams: 05/20/17 06:02 05/20/17 06:02 Phys Exam - Physical Examination Constitutional: NAD Respiratory: no wheezing, no rhonchi Cardiovascular: RRR, no rub Gastrointestinal: soft, non-tender, positive bowel sounds Musculoskeletal: no edema Neurological: moves all 4 limbs Dx/Plan - Plan cont current plan of care, DVT proph w/SCDs IMPRESSION: 1. Septic arthritis with group B streptococcus with bacteremia. on Ceftriaxone with Rifampin 2. Obesity with a BMI 37. 3. h/o Bilateral pulmonary embolism - on Xarelto 4. Upper respiratory tract infection. - r/o Flu 5. Hypokalemia 6. Chronic kidney disease stage 2. 7. Mild hyponatremia/Dehydration. resolved PLAN: * Cont Xarelto * Cont Atbx * ID following * AM labs * Cont other meds as below * Resp viral panel pending * RN calling Dr Narvaez for bleeding from incision Review of Systems - Medications/Allergies Allergies/Adverse Reactions: Allergies Allergy/AdvReac Type Severity Reaction Status Date / Time No Known Allergies Allergy Verified 08/14/16 08:49 Medications: Current Medications Acetaminophen (Tylenol) 650 mg PO Q4H PRN PRN Reason: TEMP > 101 Last Admin: 05/19/17 17:31 Dose: 650 mg Hydrocodone Bitart/Acetaminophen ([place] 10/325) 1 tab PO Q4H PRN PRN Reason: PAIN SCALE 5-7 Hydrocodone Bitart/Acetaminophen ([place] 10/325) 2 tab PO Q4H PRN PRN Reason: PAIN SCALE 8-10 Diphenhydramine HCl (Benadryl) 25 mg IVP Q3H PRN PRN Reason: Itching Diphenhydramine HCl (Benadryl) 25 mg PO Q3H PRN PRN Reason: Itching Diphenhydramine HCl (Benadryl) 25 mg IM Q3H PRN PRN Reason: Itching Fluticasone Propionate (Flonase Nasal [place]) 0 gm NASAL HS [facility] Last Admin: 05/19/17 21:42 Dose: 2 spr Guaifenesin (Mucinex) 600 mg PO Q12HR [facility] Last Admin: 05/20/17 08:48 Dose: 600 mg Guaifenesin (Robitussin Sf) 200 mg PO Q4H PRN PRN Reason: Cough Ceftriaxone Sodium 2 gm/ (Sodium Chloride) 100 mls @ 200 mls/hr IVPB 1500 [facility] Last Admin: 05/19/17 15:09 Dose: 100 mls Sodium Chloride (Normal Saline 0.9%) 1,000 mls @ 100 mls/hr IV .Q10H [facility] Last Admin: 05/20/17 03:11 Dose: 1,000 mls Miscellaneous Medication (Pharmacy To Dose) 1 each IVPB PRN PRN PRN Reason: Pharmacy to dose Naloxone HCl (Narcan) 0.2 mg IV Q5MIN PRN PRN Reason: Opiate Reversal Ondansetron HCl (Zofran) 4 mg IVP Q6H PRN PRN Reason: Nausea/Vomiting Phenol (Chloraseptic [place] 180 Ml Bot) 0 ml PO BIDPRN PRN PRN Reason: Sore Throat Polyethylene Glycol (Miralax) 17 gm PO DAILY [facility] Last Admin: 05/20/17 08:48 Dose: Not Given Potassium Chloride (Klor-Con 10) [facility]q [facility] Potassium Chloride (Klor-Con 10) 20 meq PO NOW [facility] Stop: 05/20/17 12:00 Last Admin: 05/20/17 08:48 Dose: 20 meq Promethazine HCl (Phenergan) 12.5 mg IM Q4H PRN PRN Reason: Nausea/Vomiting Rifampin (Rifadin) 300 mg PO 1000,2200 [facility] Last Admin: 05/20/17 09:08 Dose: 300 mg Rivaroxaban (Xarelto) 20 mg PO 1700 [facility] Last Admin: 05/19/17 15:16 Dose: 20 mg Senna/Docusate Sodium (Senokot S) 1 tab PO BID [facility] Last Admin: 05/20/17 08:48 Dose: Not Given Sodium Chloride (Flush - Normal Saline) 10 ml IVF Q12HR [facility] Last Admin: 05/20/17 08:49 Dose: Not Given Sodium Chloride (Flush - Normal Saline) 10 ml IVF PRN PRN PRN Reason: Saline Flush Throat Lozenges (Cepastat Lozenges) 1 bora PO Q2H PRN PRN Reason: Sore Throat Tramadol HCl (Ultram) 50 mg PO Q6H PRN PRN Reason: PAIN SCALE 1-3 Tramadol HCl (Ultram) 100 mg PO Q6H PRN PRN Reason: PAIN SCALE 3-4 Zolpidem Tartrate (Ambien) 5 mg PO HSPRN PRN PRN Reason: Insomnia
[2017-05-20 11:16] LABS: Hematocrit 26.5 % (42.0-52.0)
[2017-05-20] MEDS: Acetaminophen 325 MG TAB PO PRN (15:46)
[2017-05-20] MEDS: cefTRIAXone\\ROCEPHIN 2 GM in Sodium Chloride 0.9% 100 ML IVPB SCH (15:46)
[2017-05-20] MEDS: Rivaroxaban 10 MG TAB PO SCH (16:04)
--- NOTE | 2017-05-20 17:39 | PRG ---
DATE OF SERVICE: 05/20/2017 SUBJECTIVE: The patient has not had a fever recurrence since the last episode, he was bleeding from the incision again and the Xarelto was discontinued. A little bit of cough, no chest pain or abdomin al pain, having some liquid stool intermittently, voiding without difficulty. OBJECTIVE: GENERAL: Awake and alert, in no distress. HEENT: Ocular movements are conjugate. LUNGS: With symmetric, clear breath sounds. CARDIOVASCULAR: S1 and S2, regular rate. ABDOMEN: No abdominal tenderness and bowel sounds are present. EXTREMITIES: The knee site with little bit bleeding at this time. LABORATORY DATA: White cell count 8.8, hemoglobin 8.1, platelets 265, and 83% neutrophils and creati nine 0.93 with normal liver profile. Respiratory virus PCR panel was negative and two sets of blood cultures obtained yesterday thus far no growth. 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 Recrudescence of fever is not yet clear if it is due to the original process or from bleeding, hem atoma in the joint space. The patient will continue on Rocephin, the patient has had the Xarelto was discontinued because of the bleeding problem and we will continue to be observed until two those iss ues are fixed.
[2017-05-20] MEDS: Fluticasone Propionate Nasal Spray 16 gm Bottle NASAL SCH (21:22)
[2017-05-21] MEDS: Sodium Chloride 0.9% 1,000 ML IV SCH (06:31)
[2017-05-21] MEDS ORDERED: Potassium Chloride 10 MEQ TAB PO SCH (08:00)
[2017-05-21 09:18] LABS: Hematocrit 26.5 % (42.0-52.0)
[2017-05-21] MEDS: Polyethylene Glycol 3350 17 GM Packet PO SCH (09:52)
[2017-05-21] MEDS: Senokot S 8.6-50 MG TAB PO SCH (09:53)
[2017-05-21] MEDS: Rifampin 300 MG CAP PO SCH (09:59)
[2017-05-21] MEDS: guaiFENesin ER 600 MG TAB PO SCH (10:08)
[2017-05-21] MEDS: cefTRIAXone\\ROCEPHIN 2 GM in Sodium Chloride 0.9% 100 ML IVPB SCH (14:00)
[2017-05-21 15:37] VITALS: BP 143/84; TEMP 97.7
--- NOTE | 2017-05-22 08:59 | DIS ---
DATE OF ADMISSION: 05/16/2017 DATE OF DISCHARGE: 05/21/2017 DISCHARGE DISPOSITION: Home with home healthcare for antibiotic through [place]. FOLLOWUP: 1. Follow up with primary care physician, Dr. Orantes in 1 week. 2. Follow up with Infectious Disease, Dr. Jurado in 3-4 weeks. 3. Follow up with Dr. Narvaez in 2 weeks. ALLERGIES: No known drug allergies. The patient was seen and examined on the day of discharge. Denies any new complaints. DISCHARGE MEDICATIONS: 1. Ceftriaxone 2 grams daily. 2. [place] as needed. 3. Rifampin 300 mg b.i.d. for next 40 days. 4. Xarelto 20 mg daily to be restarted after [address] Narvaez 5. Florastor 250 mg daily for next 2 months. 6. Tramadol 50 mg daily as needed. INPATIENT CONSULTANTS: Dr. Narvaez, Orthopedic and Infectious Disease, Dr. Jurado. BRIEF HOSPITAL COURSE: Patient is a 46-year-old male with right knee replacement 7 weeks ago, presen shayy to the emergency room with right knee pain along with fever. He underwent blood cultures along w ith arthrocentesis and was discharged home. His cultures were positive for group B Streptococcus, fo r which he was called to get admitted for IV antibiotics. Please refer to the history and physical d ated 05/16/2017 for further details. The patient was admitted to the hospital with a diagnosis of septic arthritis with group B streptococ cus with bacteremia. He underwent irrigation and debridement of the right knee with tibial polyethyl irina swab. He was seen by Infectious Disease, Dr. Jurado. A PICC line has been placed for antibiotics . Per Dr. Jurado, he will continue ceftriaxone 2 grams daily for a total of 42 days with oral Rifampi n. Weekly CBC, CRP, and CMP is recommended. After completion of the initial phase of therapy, he wi ll then transition to Keflex plus rifampin for 3 months and then after that suppressive cephalosporin for a protracted period of time. Primary care physician advised to follow up on the antibiotics aft er the initial phases of therapy. He was also advised to follow up with Dr. Jurado. He had some issu es with bleeding postoperatively for which Xarelto was held. He has been cleared by consultants for discharge. FINAL DIAGNOSES: 1. Septic arthritis with group B streptococcus with bacteremia. He will continue ceftriaxone and ri fampin for 40 days post-discharge. 2. Obesity with a body mass index of 37. 3. History of bilateral pulmonary embolism on Xarelto. 4. Recent upper respiratory tract infection. Flu was ruled out. His respiratory viral panel was ne gative. 5. Hypokalemia, replaced. 6. Chronic kidney disease stage 2. 7. Mild hyponatremia. 8. Dehydration. Plan of care was discussed with the patient in detail. He stated understanding.
== END 2017-05-21 17:15 | disposition home or self-care (01) | DRG 486 ==
LOC: ERS 11:42 → SJJU 17:22
PROVIDERS: ADMIT Internal Medicine; ATTEND Internal Medicine
PROC: 0SPC09Z Removal of Liner from Right Knee Joint, Open Approach (ICD-10-PCS; principal; 2017-05-17)
PROC: 0SBC0ZZ Excision of Right Knee Joint, Open Approach (ICD-10-PCS; 2017-05-17)
PROC: 0SUV09Z Supplement Right Knee Joint, Tibial Surface with Liner, Open Approach (ICD-10-PCS; 2017-05-17)
PROC: 02HV33Z Insertion of Infusion Device into Superior Vena Cava, Percutaneous Approach (ICD-10-PCS; 2017-05-19)
PROC: B548ZZA Ultrasonography of Superior Vena Cava, Guidance (ICD-10-PCS; 2017-05-19)
DX: T84.53XA Infection and inflammatory reaction due to internal right knee prosthesis, initial encounter (principal); M00.261 Other streptococcal arthritis, right knee; R78.81 Bacteremia; E87.1 Hypo-osmolality and hyponatremia; B95.1 Streptococcus, group B, as the cause of diseases classified elsewhere; M65.861 Other synovitis and tenosynovitis, right lower leg; E66.9 Obesity, unspecified; Z68.37 Body mass index [BMI] 37.0-37.9, adult; Z86.711 Personal history of pulmonary embolism; Z79.01 Long term (current) use of anticoagulants; E87.6 Hypokalemia; E86.0 Dehydration; N18.2 Chronic kidney disease, stage 2 (mild); J06.9 Acute upper respiratory infection, unspecified
CPT/HCPCS: 20610; 36415; 36569; 71010; 80048; 80053; 80202; 81001; 81003; 81015; 82945; 83605; 83735; 84550; 85007; 85014; 85018; 85025; 85027; 85049; 85610; 85730; 87040; 87070; 87077; 87149; 87186; 87205; 87633; 89060; 96361; 96365; 96367; 96374; 99406; A4216; C1751; G8978-GP-CI; G8979-GP-CI; G8980-GP-CI; J0696; J1170; J1644; J1885; J2001; J2250; J2270; J2405; J2704; J2795; J3010; J3260; J3370; J7050

== ENCOUNTER 2017-06-10 07:58 | Outpatient (CLI) | payer OTHER ==
--- NOTE | 2017-06-10 08:52 | RAD ---
TWO VIEWS CHEST: DATE: 06/10/17. PROVIDED CLINICAL HISTORY: Dyspnea. FINDINGS: Comparison 04/06/17. Cardiac and mediastinal silhouette is within normal limits. Lungs appear clear. No pleural fluid or pneumothorax apparent. Partially visualized left upper extremity PICC line, wi th tip projecting in the expected location of the SVC. IMPRESSION: No evidence for an acute cardiopulmonary process. POS: [facility]
== END 2017-06-10 07:59 | disposition home or self-care (01) ==
LOC: RAD 07:58
PROVIDERS: ATTEND Internal Medicine Critical Care Medicine
DX: R06.00 Dyspnea, unspecified (principal)
CPT/HCPCS: 71046

== ENCOUNTER 2018-01-30 19:57 | Emergency (ER) | payer OTHER, SELFPAY ==
[2018-01-30 20:38] LABS: #Eosinphils 0.1 thou/uL (0.0-0.7); #Monocytes 0.5 thou/uL (0.11-0.59); #Neutrophils 5.7 thou/uL (1.40-6.50); %Basophils 0.2 % (0.0-1.0); %Eosinophils 1.1 % (0.0-10.0); %Neutrophils 77.7 % (42.0-75.0); Hemoglobin 14.2 g/dL (14.0-18.0); Mean Corpuscular HGB CONC 35.9 g/dL (32.0-36.0); Mean Corpuscular Hemoglobin 33.1 pg (27.0-31.0); Mean Corpuscular Volume 92.3 fL (78.0-98.0); Mean Platelet Volume 7.2 fL (7.4-10.4); Platelet Count 263 thou/uL (130-400); RBC Distribution Width 11.7 % (11.5-14.5); Red Blood Cell (RBC) Count 4.28 mill/uL (4.70-6.10); White Blood Cell (WBC) Count 7.4 thou/uL (4.8-10.8)
[2018-01-30 20:55] LABS: ALT (SGPT) 26 U/L (8-55); AST (SGOT) 25 U/L (5-34); Albumin 4.3 g/dL (3.5-5.0); Alkaline Phosphatase 107 U/L (40-150); Anion Gap 11 mmol/L (10-20); BUN (Urea Nitrogen) 12 mg/dL (8.9-20.6); Bilirubin, Total 0.5 mg/dL (0.2-1.2); Calc. Creatinine Clearance 0 mL/min (70-130); Calcium 9.5 mg/dL (7.8-10.44); Carbon Dioxide 24 mmol/L (22-29); Chloride 104 mmol/L (98-107); Estimated GFR-MDRD 63; Globulin 3.6 g/dL (2.4-3.5); Glucose 118 mg/dL (70-105); Protein, Total 7.9 g/dL (6.0-8.3); Sodium 135 mmol/L (136-145)
--- NOTE | 2018-01-30 21:35 | ULT ---
ULTRASOUND WITH DOPPLER DUPLEX VENOUS LOWER EXTREMITY RIGHT: HISTORY: 47-year-old male with right lower extremity pain and edema. TECHNIQUE: Color flow Doppler, spectral waveform analysis of pulsed Doppler, and simpson-scale imaging with bhavna holly and augmentation, were used to evaluate the right common femoral, femoral, popliteal, posterior tibial, and superficial femoral, veins; and the proximal portions of the profunda femoral and greater saphenous, veins. FINDINGS: There is normal compressibility, demonstration of blood flow by color Doppler and pulsed Doppler, and response to augmentation, in all interrogated veins. IMPRESSION: Negative. No deep vein thrombosis in the right lower extremity. jenna POS: [facility]
--- NOTE | 2018-01-30 22:12 | RAD ---
RADIOGRAPH RIGHT KNEE FOUR VIEWS: DATE: 01-30-18 TIME: 8:15 p.m. HISTORY: Pain and swelling of the right knee. COMPARISON: 05-15-17 FINDINGS: Again demonstrated are the resurfacing changes of the articular surfaces of the patella, distal femur and tibial plateau. Metallic prostheses cover the articular surfaces of the distal femur and tibial plateau. ACL repair graft anchor screws are again noted at the distal femur and anterior proximal tib ia. There is again a moderately large suprapatellar soft tissue attenuation opacity, which could be h emarthrosis. There is a greater degree of now moderately severe superficial soft tissues anterior to the patella, This is the only difference compared to the prior study. No evidence of hardware looseni ng. No fracture or dislocation. IMPRESSION: 1. Status post total right knee replacement arthroplasty. 2. Old ACL repair screws. 3. Moderately large suprapatellar density which could represent hemarthrosis. 4. Edema or hemarthrosis in Hoffa's fat pad. 5. Superficial soft tissue edema or contusion anterior to the patella. POS: [facility]
== END 2018-01-30 22:44 | disposition home or self-care (01) ==
LOC: ERS 19:57
DX: M25.461 Effusion, right knee (principal); F17.210 Nicotine dependence, cigarettes, uncomplicated; Z71.6 Tobacco abuse counseling; Z79.899 Other long term (current) drug therapy
CPT/HCPCS: 80053; 85025; 85652; 86140; 99406

== ENCOUNTER 2018-03-08 18:47 | Emergency (ER) | payer OTHER ==
[2018-03-08 19:31] LABS: #Basophils 0.1 thou/uL (0.0-0.2); #Eosinphils 0.1 thou/uL (0.0-0.7); #Lymphocytes 1.2 thou/uL (1.20-3.40); #Monocytes 0.6 thou/uL (0.11-0.59); #Neutrophils 5.3 thou/uL (1.40-6.50); %Basophils 0.9 % (0.0-1.0); %Lymphocytes 15.9 % (21.0-51.0); %Monocytes 7.9 % (0.0-10.0); %Neutrophils 73.4 % (42.0-75.0); Mean Corpuscular HGB CONC 33.7 g/dL (32.0-36.0); Mean Corpuscular Volume 94.9 fL (78.0-98.0); Mean Platelet Volume 7.9 fL (7.4-10.4); Platelet Count 245 thou/uL (130-400); RBC Distribution Width 12.5 % (11.5-14.5); White Blood Cell (WBC) Count 7.2 thou/uL (4.8-10.8)
--- NOTE | 2018-03-08 21:35 | RAD ---
RIGHT KNEE FOUR VIEWS: 03/08/18 HISTORY: Right knee pain, swelling, redness. FINDINGS/IMPRESSION: There are postop changes total knee arthroplasty in good position and alignment. Changes of an ACL re pair is also seen. No fracture, dislocation or bony destructions identified. A joint effusion is pres ent. Soft tissue edema is also seen in the prepatellar space. No periprosthetic lucency is identified to suggest loosening. POS: [facility]
[2018-03-08] MEDS ORDERED: Lidocaine 1% w/Epinephrine 1:100K 20 ML VIAL ONE (22:09)
[2018-03-08] MEDS ORDERED: Cephalexin 250 MG CAP ONE (22:47)
[2018-03-08 22:53] LABS: Body Fluid Source SYNOVIAL FLUID; Tube # 1
[2018-03-08 22:54] LABS: BF Color Yellow; Clarity Hazy (Clear); RBC Count-Automated 169000 /cumm; WBC/NonHematic-Auto 147000 /cumm
[2018-03-08] MEDS ORDERED: Rivaroxaban 10 MG TAB PO SCH (23:00)
[2018-03-08 23:35] LABS: BF Segmented Neutrophils 89 %; Cell Count Non Hematic 1 %; Lymphocytes 10 %
== END 2018-03-09 00:26 | disposition home or self-care (01) ==
LOC: ERS 18:47
DX: M25.461 Effusion, right knee (principal); F17.220 Nicotine dependence, chewing tobacco, uncomplicated; Z79.01 Long term (current) use of anticoagulants
CPT/HCPCS: 36415; 85025; 85060; 86140; 87070; 87077; 87186; 87205; 89051; J2001